=== PATIENT | female | born 1955 ===

== ENCOUNTER 2016-08-13 13:14 | Emergency (ER) | payer OTHER ==
[2016-08-13 13:14] VITALS: BMI 29.9
[2016-08-13 13:39] VITALS: RESP 16; O2SAT 99
--- NOTE | 2016-08-13 15:34 | RAD ---
PROCEDURE: Right knee dated 08/13/2016. . HISTORY: right knee pain COMPARISON: Comparison made with plain film radiographs of the right knee 03/25/2016. FINDINGS: BONES: No evidence of acute displaced fracture nor dislocation. Osseous structures appear intact. JOINTS: Minor medial joint space narrowing. Small marginal osteophyte formation arising from the lateral tibial plateau. The slight spurring of the tibial spines. There is also mild patellofemoral osteoarthritis with small posterior patellar anterior femoral osteophyte formation as well as anterior patella enthesophyte formation. . The joint spaces are preserved JOINT EFFUSION: No significant joint effusion. No acute OTHER FINDINGS: Mild vascular calcifications are present. IMPRESSION: No acute displaced fracture nor dislocation. Tricompartmental DJD as detailed above. Vascular calcifications are also noted
--- NOTE | 2016-08-13 15:40 | C.PDOC ---
History Of Present Illness 61 yr old female presents to the ER for evaluation of right knee and thigh pain that has been present ever since she fell in 2015. Patient states the pain has worsened in the last few days. She states she takes oxycodone for the pain at home. Patient denies any new trauma/injuries, back pain, fever, sensory changes, weakness. Time Seen by Provider: 08/13/16 14:02 Chief Complaint (Nursing): Lower Extremity Problem/Injury History Per: Patient History/Exam Limitations: no limitations Onset/Duration Of Symptoms: Persistent (Since 2015 ), Worse Since ( Last few days. ) Severity: Moderate Past Medical History Reviewed: Historical Data, Nursing Documentation, Vital Signs Vital Signs: Last Vital Signs Temp 97.6 F 08/13/16 16:28 Pulse 91 H 08/13/16 16:28 Resp 16 08/13/16 16:28 BP 162/72 H 08/13/16 16:28 Pulse Ox 99 08/21/16 14:04 - Medical History PMH: Anxiety, Arthritis, Asthma, CAD, Depression, Diabetes, HTN, Hypercholesterolemia Surgical History: Appendectomy (1998), [facility]/2014[facility] CORONAR ARTERIOGR-2 CATH (04/10/14) INSERTION OF ONE VASCULAR STENT (04/10/14) INSRT OF DRUG-ELUTING CORON ARTERY STENTS(S) (04/10/14) LEFT HEART CARDIAC CATH (04/10/14) LT HEART ANGIOCARDIOGRAM (03/03/14) OCCUPATIONAL THERAPY (08/15/14) PERCUTANEOUS TRANSLUMINAL CORONARY ANGIOPLASTY [PTCA] (04/10/14) PHYSICAL THERAPY NEC (08/15/14) PROCEDURE ON SINGLE VESSEL (04/10/14) Family History: States: CAD, Hypertension - Social History Hx Tobacco Use: No Hx Alcohol Use: No Hx Substance Use: No - Immunization History Hx Tetanus Toxoid Vaccination: Yes Hx Influenza Vaccination: Yes Hx Pneumococcal Vaccination: Yes Review Of Systems Except As Marked, All Systems Reviewed And Found Negative. Constitutional: Negative for: Fever, Chills Cardiovascular: Negative for: Chest Pain Respiratory: Negative for: Shortness of Breath Gastrointestinal: Negative for: Nausea, Vomiting, Abdominal Pain, Diarrhea Musculoskeletal: Positive for: Other ((+) Right knee pain and thigh pain. ). Negative for: Back Pain, Leg Pain Skin: Negative for: Rash Neurological: Negative for: Weakness, Numbness Physical Exam - Physical Exam Appears: Well, Non-toxic, No Acute Distress Skin: Normal Color, Warm, Dry, No Rash Head: Atraumatic, Normacephalic Oral Mucosa: Moist Cardiovascular: Rhythm Regular Respiratory: Normal Breath Sounds, No Rales, No Rhonchi, No Wheezing Gastrointestinal/Abdominal: Normal Exam, Bowel Sounds, Soft, No Tenderness Extremity: Normal ROM (at the hip and knee. ), Tenderness (Right Knee - Mild diffuse tenderness to palpation. ), No Calf Tenderness, Capillary Refill (< 2 sec all digits ), No Deformity, Other (No pain with pelvic rocking) Extremity: Bilateral: Atraumatic, Normal Color And Temperature, Normal ROM Pulses: Left Dorsalis Pedis: Normal, Right Dorsalis Pedis: Normal Neurological/Psych: Oriented x3, Normal Motor, Normal Sensation ED Course And Treatment O2 Sat by Pulse Oximetry: 99 (RA) Pulse Ox Interpretation: Normal - Other Rad X-Ray - Right Knee X-Ray: Viewed By Me, Read By Radiologist Interpretation: PROCEDURE: Right knee dated 08/13/2016. . HISTORY: right knee pain. COMPARISON: Comparison made with plain film radiographs of the right knee 03/25/2016. FINDINGS: BONES: No evidence of acute displaced fracture nor dislocation. Osseous structures appear intact. JOINTS: Minor medial joint space narrowing. Small marginal osteophyte formation arising from the lateral tibial plateau. The slight spurring of the tibial spines. There is also mild patellofemoral osteoarthritis with small posterior patellar anterior femoral osteophyte formation as well as anterior patella enthesophyte formation. . The joint spaces are preserved. JOINT EFFUSION: No significant joint effusion. No acute. OTHER FINDINGS: Mild vascular calcifications are present. IMPRESSION: No acute displaced fracture nor dislocation. Tricompartmental DJD as detailed above. Vascular calcifications are also noted Venous Duplex X-Ray: Viewed By Me, Read By Radiologist Interpretation: PROCEDURE: Right Lower Extremity Venous Duplex Exam. HISTORY: Right leg pain r/o dvt. PRIORS: None. TECHNIQUE: Right common femoral, femoral, popliteal and posterior tibial, peroneal and great saphenous veins were evaluated. Flow was assessed with color Doppler, compressibility, assessment of phasic flow and augmentation response. Report prepared by BYRON Mondragon. FINDINGS: RIGHT: 1. Common Femoral Vein: 1.1. Compressibility - Fully compressible: Thrombus - None: Flow - Phasic: Augmentation -Normal: Reflux - None. 2. Femoral Vein: 2.1. Compressibility - Fully compressible: Thrombus - None: Flow - Phasic: Augmentation -Normal: Reflux - None. 3. Popliteal Vein: 3.1. Compressibility - Fully compressible: Thrombus - None: Flow - Phasic: Augmentation -Normal: Reflux - None. 4. Posterior Tibial Vein: 4.1. Compressibility - Fully compressible: Thrombus - None: Flow - Phasic: Augmentation -Normal: Reflux - None. 5. Peroneal Vein: 5.1. Compressibility - Fully compressible: Thrombus - None: Flow - Phasic: Augmentation -Normal: Reflux - None. 6. Great Saphenous Vein: 6.1. Compressibility - Fully compressible: Thrombus -None: Flow - Phasic: Augmentation - Normal: Reflux - None. OTHER FINDINGS: IMPRESSION: No evidence of deep or superficial vein thrombosis of the right lower extremity with excellent venous flow. Normal valve function noted of the right side. Normal venous flow noted in the left common femoral vein. Progress Note: Xray of right knee and venous doppler ordered and reviewed. Patient given 1 dose PO Percocet. Reevaluation Time: 16:10 Reassessment Condition: Improved (On reassessment, patient is resting comfortably and states her pain has improved. Venous doppler (-) for DVT, and Xray of knee shows arthritic changes without acute fracture/dislocation. Patient instructed to follow up with orthopedics within 1 week. She has pain medication at home to take, and understands she should return to ED if symptoms worsen.) Disposition Counseled Patient/Family Regarding: Studies Performed, Diagnosis, Need For Followup, Rx Given - Disposition Referrals: Lamonte Kamara MD [Non-Staff] - Kosta De La Cruz MD [Staff Provider] - [facility] [Outside] Disposition: HOME/ ROUTINE Disposition Time: 16:10 Condition: STABLE Additional Instructions: FOLLOW UP WITH ORTHOPEDICS WITHIN 1 WEEK USE YOUR PAIN MEDICATION NEEDED FOLLOW UP WITH DR KAMARA IN 1-2 DAYS RETURN TO ER IF SYMTOMS WORSEN Instructions: Knee Pain (ED) Forms: General Discharge Instructions Print Language: TURKMEN - POA Present On Arrival: None - Clinical Impression Clinical Impression: Knee pain, Right thigh pain - Scribe Statement The provider has reviewed the documentation as recorded by the Keithibe Gala Patel Provider Attestation: All medical record entries made by the Padmini were at my direction and personally dictated by me. I have reviewed the chart and agree that the record accurately reflects my personal performance of the history, physical exam, medical decision making, and the department course for this patient. I have also personally directed, reviewed, and agree with the discharge instructions and disposition.
[2016-08-13] MEDS ORDERED: Oxycodone/Acetaminophen 5/325 mg Tab PO STA (15:44)
[2016-08-13] MEDS ORDERED: Oxycodone/Acetaminophen 5/325 mg Tab ONE (15:49)
--- NOTE | 2016-08-13 15:58 | VASCLAB ---
PROCEDURE: Right Lower Extremity Venous Duplex Exam. HISTORY: Right leg pain r/o dvt PRIORS: None. TECHNIQUE: Right common femoral, femoral, popliteal and posterior tibial, peroneal and great saphenous veins were evaluated. Flow was assessed with color Doppler, compressibility, assessment of phasic flow and augmentation response. Report prepared by BYRON Mondragon FINDINGS: RIGHT: 1. Common Femoral Vein: 1.1. Compressibility - Fully compressible: Thrombus - None: Flow - Phasic: Augmentation -Normal: Reflux - None. 2. Femoral Vein: 2.1. Compressibility - Fully compressible: Thrombus - None: Flow - Phasic: Augmentation -Normal: Reflux - None. 3. Popliteal Vein: 3.1. Compressibility - Fully compressible: Thrombus - None: Flow - Phasic: Augmentation -Normal: Reflux - None. 4. Posterior Tibial Vein: 4.1. Compressibility - Fully compressible: Thrombus - None: Flow - Phasic: Augmentation -Normal: Reflux - None. 5. Peroneal Vein: 5.1. Compressibility - Fully compressible: Thrombus - None: Flow - Phasic: Augmentation -Normal: Reflux - None. 6. Great Saphenous Vein: 6.1. Compressibility - Fully compressible: Thrombus -None: Flow - Phasic: Augmentation - Normal: Reflux - None. OTHER FINDINGS: IMPRESSION: No evidence of deep or superficial vein thrombosis of the right lower extremity with excellent venous flow. Normal valve function noted of the right side. Normal venous flow noted in the left common femoral vein.
[2016-08-13 16:29] VITALS: BP 162/72; PULSE 91; TEMP 97.6
== END 2016-08-13 16:29 | disposition home or self-care (01) ==
LOC: C.ER 13:14
DX: M25.561 Pain in right knee (principal); M79.651 Pain in right thigh

== ENCOUNTER 2017-04-05 19:24 | Observation (INO) | payer MEDICARE, OTHER ==
[2017-04-05 19:24] VITALS: BMI 27.4
--- NOTE | 2017-04-05 22:28 | C.PDOC ---
History Of Present Illness 62 year old female with a Hx of HTN, diabetes, and CAD, presents to the ER with a complaint of chest pain and elevated blood pressure for the past week, associated with subjective dyspnea. Denies fever or other complaints. Time Seen by Provider: 04/05/17 21:50 Chief Complaint (Nursing): High Blood Pressure History Per: Patient History/Exam Limitations: no limitations Onset/Duration Of Symptoms: Days Current Symptoms Are (Timing): Still Present Associated Symptoms: Chest Pain, Dyspnea (Subjective). denies: Dizziness, Blurred Vision, Focal Weakness, Headache Quality Of Symptoms: Asymptomatic Exacerbating Factor(s): Pos: None Recent travel outside of the [place]: No Past Medical History Reviewed: Historical Data, Nursing Documentation, Vital Signs Vital Signs: Last Vital Signs Temp 98.4 F 04/05/17 20:18 Pulse 85 04/05/17 20:18 Resp 20 04/05/17 20:18 BP 148/84 04/05/17 20:18 Pulse Ox 98 04/05/17 22:29 - Medical History PMH: Anxiety, Arthritis, Asthma, CAD, Depression, Diabetes, HTN, Hypercholesterolemia Surgical History: Appendectomy (1998), Coronary Stent (x2 04/10/2014) Denies: Pacemaker - [facility] Procedures CORONAR ARTERIOGR-2 CATH (04/10/14) INSERTION OF ONE VASCULAR STENT (04/10/14) INSRT OF DRUG-ELUTING CORON ARTERY STENTS(S) (04/10/14) LEFT HEART CARDIAC CATH (04/10/14) LT HEART ANGIOCARDIOGRAM (03/03/14) OCCUPATIONAL THERAPY (08/15/14) PERCUTANEOUS TRANSLUMINAL CORONARY ANGIOPLASTY [PTCA] (04/10/14) PHYSICAL THERAPY NEC (08/15/14) PROCEDURE ON SINGLE VESSEL (04/10/14) Family History: States: CAD, Hypertension - Social History Hx Tobacco Use: No Hx Alcohol Use: No Hx Substance Use: No - Immunization History Hx Tetanus Toxoid Vaccination: Yes Hx Influenza Vaccination: No Hx Pneumococcal Vaccination: No Review Of Systems Constitutional: Negative for: Fever, Chills Cardiovascular: Positive for: Chest Pain Respiratory: Positive for: Other (Subjective dyspnea) Gastrointestinal: Negative for: Nausea, Vomiting Physical Exam - Physical Exam Appears: Non-toxic, No Acute Distress Skin: Normal Color, Warm, Dry Head: Atraumatic, Normacephalic Eye(s): bilateral: Normal Inspection Oral Mucosa: Moist Neck: Normal, Supple Chest: Symmetrical, No Tenderness Cardiovascular: Rhythm Regular Respiratory: Normal Breath Sounds, No Rales, No Rhonchi, No Wheezing Gastrointestinal/Abdominal: Soft, No Tenderness Extremity: Normal ROM (x4) Neurological/Psych: Oriented x3, Normal Speech, Other (No focal deficits) ED Course And Treatment ECG: Interpreted By Me, Viewed By Me ECG Rhythm: Sinus Rhythm ECG Interpretation: No Changes From Prior Interpretation Of ECG: t wave changes anterior laterally Rate From EC O2 Sat by Pulse Oximetry: 98 (Room air) Pulse Ox Interpretation: Normal Medical Decision Making Medical Decision Making: EKG, blood work, and CXR ordered. Disposition - Disposition Forms: [facility] (Slovak) - Scribe Statement The provider has reviewed the documentation as recorded by the Scribreynaldo Morfin All medical record entries made by the Scribe were at my direction and personally dictated by me. I have reviewed the chart and agree that the record accurately reflects my personal performance of the history, physical exam, medical decision making, and the department course for this patient. I have also personally directed, reviewed, and agree with the discharge instructions and disposition.
[2017-04-05 22:46] LABS: BASO % 0.6 % (0.0-2.0); EOS # 0.8 K/uL (0.0-0.7); EOS % 9.3 % (0.0-4.0); HEMATOCRIT 31.6 % (34.0-47.0); LYMPH % 12.7 % (20.0-40.0); MEAN CORPUSCULAR HEMOGLOBIN 28.8 pg (27.0-31.0); MEAN CORPUSCULAR HGB CONC 33.5 g/dL (33.0-37.0); MEAN PLATELET VOLUME 6.4 fL (7.2-11.7); MONO # 0.5 K/uL (0.0-0.8); MONO % 6.2 % (0.0-10.0); RED CELL DISTRIBUTION WIDTH 13.2 % (11.5-14.5); WHITE BLOOD COUNT 8.2 K/uL (4.8-10.8)
[2017-04-05 23:12] LABS: ALKALINE PHOSPHATASE 83 U/L (38-126); ALT/SGPT 36 U/L (9-52); AST/SGOT 20 U/L (14-36); BILIRUBIN,TOTAL 0.8 mg/dL (0.2-1.3); BLOOD UREA NITROGEN 20 mg/dL (7-17); CALCIUM 8.6 mg/dl (8.6-10.4); CARBON DIOXIDE 23 mmol/L (22-30); CHLORIDE 105 mmol/L (98-107); GFR AFRICAN-AMERICAN 55; GLUCOSE,RANDOM 131 mg/dL (65-105); POTASSIUM 3.9 mmol/L (3.6-5.2); SODIUM 139 mmol/L (132-148); TOTAL PROTEIN 7.7 g/dL (6.3-8.3)
[2017-04-06] MEDS ORDERED: POLYETHYLENE GLYCOL 3350 17 GM/Dose PACKET PO SCH (01:45)
[2017-04-06 03:12] VITALS: TEMP 98.3
--- NOTE | 2017-04-06 03:44 | CP.PCM.HP ---
<DavidLisa L. - Last Filed: 04/06/17 03:41> History of Present Illness - History of Present Illness History of Present Illness: CC: Chest Pain HPI: 62 year old female presented to ED with chest pain and elevated blood pressure that has been present for the past week on and off. This morning, patient awoke with chest pain and was unable to move due to the pain. Patient describes the pain as heavy. The pain radiates to her left shoulder, upper back and neck. Her blood pressure this past week has been as high as 190/80. Nothing makes the pain feel better. Patient also complains of fatigue, and dyspnea. Patient denies fever, chills, nausea, vomiting, constipation, diarrhea. PMH: CAD, Diabetes, HTN, HLD, asthma. anxiety, depression PSH: Appendectomy (1998), Coronary Stent x2 (2013) Family History: CAD, HTN Medications: Metformin 500 mg BID, Norvasc 10 mg daily, ASA 81 mg daily, Ativan 1 mg daily PRN, Oxycodone 15 mg daily PRN, Plavix 75 mg daily, Colac 100 mg TID , Pepcid 20 mg BID, Miralax 17 gm once, Crestor 10 mg HS, Lopressor 12.5 mg BID Allergies: NKDA Social: Denies tobacco, drug, alcohol use Present on Admission - Present on Admission Any Indicators Present on Admission: No History of DVT/PE: No History of Uncontrolled Diabetes: No Urinary Catheter: No Decubitus Ulcer Present: No Review of Systems - Constitutional Constitutional: Fatigue Additional comments: decreased appetite - Cardiovascular Cardiovascular: Chest Pain, Dyspnea. absent: Leg Edema, Palpitations - Respiratory Respiratory: Dyspnea. absent: Cough, Wheezing, Stridor - Gastrointestinal Gastrointestinal: absent: Abdominal Pain, Constipation, Diarrhea, Nausea, Vomiting - Musculoskeletal Musculoskeletal: absent: Numbness, Tingling - Integumentary Integumentary: absent: Rash - Endocrine Endocrine: Fatigue Past Patient History - Infectious Disease Hx of Infectious Diseases: None - Past Medical History & Family History Past Medical History?: Yes - Past Social History Smoking Status: Never Smoked - CARDIAC Hx Hypercholesterolemia: Yes Hx Hypertension: Yes Hx Pacemaker: No - PULMONARY Hx Asthma: Yes - NEUROLOGICAL HX Cerebrovascular Accident: Yes (may 2014; left sided weakness) - HEENT Hx HEENT Problems: Yes Other/Comment: EYES W/ PRESSURE - RENAL Hx Chronic Kidney Disease: No - ENDOCRINE/METABOLIC Hx Endocrine Disorders: Yes Hx Diabetes Mellitus Type 2: Yes - HEMATOLOGICAL/ONCOLOGICAL Hx Human Immunodeficiency Virus (HIV): No - INTEGUMENTARY Hx Dermatological Problems: No - MUSCULOSKELETAL/RHEUMATOLOGICAL Hx Arthritis: Yes - GASTROINTESTINAL Hx Gastrointestinal Disorders: No - GENITOURINARY/GYNECOLOGICAL Hx Genitourinary Disorders: No - PSYCHIATRIC Hx Anxiety: Yes Hx Depression: Yes Hx Substance Use: No - SURGICAL HISTORY Hx Appendectomy: Yes (1998) Hx Coronary Stent: Yes (x2 04/10/2014) - ANESTHESIA Hx Anesthesia: Yes Hx Anesthesia Reactions: No Hx Malignant Hyperthermia: No Meds Allergies/Adverse Reactions: Allergies Allergy/AdvReac Type Severity Reaction Status Date / Time No Known Allergies Allergy Verified 04/05/17 20:23 Physical Exam - Constitutional Appears: Non-toxic, No Acute Distress - Head Exam Head Exam: ATRAUMATIC, NORMAL INSPECTION, NORMOCEPHALIC Additional comments: positive spurling, pain in neck and shoulder with head movement - Eye Exam Eye Exam: EOMI, Normal appearance - ENT Exam ENT Exam: Mucous Membranes Moist - Respiratory Exam Respiratory Exam: Clear to Auscultation Bilateral, NORMAL BREATHING PATTERN. absent: Rales, Rhonchi, Wheezes, Respiratory Distress, Stridor - Cardiovascular Exam Cardiovascular Exam: +S1, +S2 - GI/Abdominal Exam GI & Abdominal Exam: Normal Bowel Sounds, Soft. absent: Tenderness - Extremities Exam Extremities exam: Positive for: normal inspection. Negative for: pedal edema - Neurological Exam Neurological exam: Alert, Oriented x3 - Psychiatric Exam Psychiatric exam: Anxious, Normal Affect - Skin Skin Exam: Intact, Normal Color, Warm Results - Vital Signs Recent Vital Signs: Last Vital Signs Temp 98.3 F 04/06/17 03:11 Pulse 89 04/06/17 03:11 Resp 20 04/06/17 03:11 BP 148/77 04/06/17 03:11 Pulse Ox 97 04/06/17 03:11 - Labs Result Diagrams: 04/05/17 22:44 04/05/17 22:44 Labs: Laboratory Results - last 24 hr 04/05/17 04/05/17 04/05/17 22:44 22:44 22:44 WBC 8.2 RBC 3.67 L Hgb 10.6 L Hct 31.6 L MCV 86.0 MCH 28.8 MCHC 33.5 RDW 13.2 Plt Count 255 MPV 6.4 L Neut % (Auto) 71.2 Lymph % (Auto) 12.7 L [place] % (Auto) 6.2 Eos % (Auto) 9.3 H Baso % (Auto) 0.6 Neut # 5.9 Lymph # 1.0 [place] # 0.5 Eos # 0.8 H Baso # 0.0 PT 10.9 INR 1.0 APTT 35 H Sodium 139 Potassium 3.9 Chloride 105 Carbon Dioxide 23 Anion Gap 15 BUN 20 H Creatinine 1.2 Est GFR ( Amer) 55 Est GFR (Non-Af Amer) 46 Random Glucose 131 H Calcium 8.6 Total Bilirubin 0.8 AST 20 ALT 36 Alkaline Phosphatase 83 Troponin I < 0.0120 NT-Pro-B Natriuret Pep 493 Total Protein 7.7 Albumin 3.9 Globulin 3.8 Albumin/Globulin Ratio 1.0 Assessment & Plan - Assessment and Plan (Free Text) Assessment: Chest pain 2/2 cervical radiculopathy vs ACS ASA 325mg po in ED Flexeril 10mg po TID Toradol 30mg IVP stat Apply cervical collar f/u Troponin First troponin negative CAD Plavix 75mg po daily Crestor 10mg po hs ASA 81mg po daily HTN Metoprolol 12.5mg po BID DM Metformin 500mg po BID f/u HgA1C Accuchecks ACHS Chronic Constipation Miralax Prophylaxis DVT: SCDs, Heparin 5000 u sc q8h GI: Pepcid 20 mg po BID <Korey Hall P - Last Filed: 04/06/17 06:54> Results - Vital Signs Recent Vital Signs: Last Vital Signs Temp 98.3 F 04/06/17 03:11 Pulse 89 04/06/17 03:11 Resp 20 04/06/17 03:11 BP 148/77 04/06/17 03:11 Pulse Ox 97 04/06/17 03:11 - Labs Result Diagrams: 04/05/17 22:44 04/05/17 22:44 Labs: Laboratory Results - last 24 hr 04/05/17 04/05/17 04/05/17 22:44 22:44 22:44 WBC 8.2 RBC 3.67 L Hgb 10.6 L Hct 31.6 L MCV 86.0 MCH 28.8 MCHC 33.5 RDW 13.2 Plt Count 255 MPV 6.4 L Neut % (Auto) 71.2 Lymph % (Auto) 12.7 L [place] % (Auto) 6.2 Eos % (Auto) 9.3 H Baso % (Auto) 0.6 Neut # 5.9 Lymph # 1.0 [place] # 0.5 Eos # 0.8 H Baso # 0.0 PT 10.9 INR 1.0 APTT 35 H Sodium 139 Potassium 3.9 Chloride 105 Carbon Dioxide 23 Anion Gap 15 BUN 20 H Creatinine 1.2 Est GFR ( Amer) 55 Est GFR (Non-Af Amer) 46 Random Glucose 131 H Hemoglobin A1c Calcium 8.6 Total Bilirubin 0.8 AST 20 ALT 36 Alkaline Phosphatase 83 Troponin I < 0.0120 NT-Pro-B Natriuret Pep 493 Total Protein 7.7 Albumin 3.9 Globulin 3.8 Albumin/Globulin Ratio 1.0 04/06/17 04/06/17 04:24 04:24 WBC RBC Hgb Hct MCV MCH MCHC RDW Plt Count MPV Neut % (Auto) Lymph % (Auto) [place] % (Auto) Eos % (Auto) Baso % (Auto) Neut # Lymph # [place] # Eos # Baso # PT INR APTT Sodium Potassium Chloride Carbon Dioxide Anion Gap BUN Creatinine Est GFR ( Amer) Est GFR (Non-Af Amer) Random Glucose Hemoglobin A1c 5.8 Calcium Total Bilirubin AST ALT Alkaline Phosphatase Troponin I < 0.0120 NT-Pro-B Natriuret Pep Total Protein Albumin Globulin Albumin/Globulin Ratio Attending/Attestation - Attestation I have personally seen and examined this patient.: Yes I have fully participated in the care of the patient.: Yes I have reviewed all pertinent clinical information: Yes Notes (Text): Assessment 62 F with h/o CAD stents with left sided cp started yesterday morning when woke up from sleep, not exertional on exam + spruling's test on left side, left neck trap, pertoral area tender, no sensory or motor deficit Intermittent elevated bp likely from stress and pain H/o NIDDM Plan Cervical collar, toradol, flexeril, ativan Serial enzymes home meds See orders for details.
[2017-04-06 06:52] VITALS: O2SAT 95
--- NOTE | 2017-04-06 09:22 | RAD ---
HISTORY: chest pain COMPARISON: 08/30/2016 TECHNIQUE: Chest PA and lateral FINDINGS: LUNGS: No consolidation. Mild reticular interstitial prominence, more prominent at lung bases. PLEURA: Small bilateral pleural effusion. No pneumothorax. CARDIOVASCULAR: Normal. OSSEOUS STRUCTURES: No significant abnormalities. VISUALIZED UPPER ABDOMEN: Normal. OTHER FINDINGS: None. IMPRESSION: Mild reticular interstitial prominence, nonspecific. Small bilateral pleural effusion. Rule out interstitial pulmonary edema.
--- NOTE | 2017-04-06 09:31 | CP.PCM.PN ---
Objective - Vital Signs/Intake and Output Vital Signs (last 24 hours): Temp Pulse Resp BP Pulse Ox 98.3 F 86 18 129/74 95 04/06/17 03:11 04/06/17 06:51 04/06/17 06:51 04/06/17 06:51 04/06/17 06:51 - Medications Medications: Current Medications Amlodipine Besylate (Norvasc) 10 mg PO DAILY [facility] Aspirin (Aspirin Chewable) 81 mg PO DAILY [facility] Clopidogrel Bisulfate (Plavix) 75 mg PO DAILY [facility] Cyclobenzaprine HCl (Flexeril) 10 mg PO TID [facility] Docusate Sodium (Colace) 100 mg PO TID [facility] Famotidine (Pepcid) 20 mg PO BID [facility] Heparin Sodium (Porcine) (Heparin) 5,000 units SC Q8 [facility] Last Admin: 04/06/17 07:35 Dose: 5,000 units Losartan Potassium (Cozaar) 50 mg PO DAILY [facility] Metformin HCl (Glucophage) 500 mg PO BIDCC [facility] Metoprolol Tartrate (Lopressor) 12.5 mg PO BID [facility] Polyethylene Glycol (Miralax) 17 gm PO ONCE [facility] Rosuvastatin Calcium (Crestor) 10 mg PO HS [facility] - Labs Labs: 04/05/17 22:44 04/05/17 22:44 PT 10.9 SECONDS (9.7-12.2) 04/05/17 22:44 INR 1.0 04/05/17 22:44 APTT 35 SECONDS (21-34) H 04/05/17 22:44
--- NOTE | 2017-04-06 14:53 | PCM.PSYCH ---
Initial Psychiatric Evaluation - Initial Psychiatric Evaluation Type of Admission: Voluntary Legal Status: Capacity Chief Complaint (in patient's own words): I'm feeling depressed and anxious" History of Present Illness and Precipitating Events: Pt is 62 y/o female who is with 2 adult children that are 30 and 39 y/ o. She lives with her wheel-chair bound . 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 She is complaining of depression and anxiety. She states that she has been feeling this way for a "long time" and she feels like the care of her is the main stressor. She is prescribed Ativan 1mg, by her PCP, that she says helps relief her anxiety symptoms. She has a hsitory of panic attacks that is relieved by the Ativan. She was prescribed oxycodone in the past but is unable to afford it anymore. As a result , takes her 's oxycodone as needed for pain in her legs. Pt denies alcohol, tobacco, marijuana, benzo use. Pt states that she has been feeling very fatigued and she does not sleep well. She denies Suicidal Ideations. She reports deccreased appetite, difficulty concentrating, and decreased interest. Past Medical HX: Asthma, Stroke 2015, Cardiac Stent x2 2013 Past Psychiatric HX: Denies Family Psychiatric HX: Denies Current Medications: Active Medications Generic Name Dose Route Start Last Admin Trade Name Freq PRN Reason Stop Dose Admin Amlodipine Besylate 10 mg 04/06/17 10:00 04/06/17 09:39 Norvasc PO 10 mg DAILY TORRI Administration Aspirin 81 mg 04/06/17 10:00 04/06/17 09:32 Aspirin Chewable PO 81 mg DAILY TORRI Administration Clopidogrel Bisulfate 75 mg 04/06/17 10:00 04/06/17 09:33 Plavix PO 75 mg DAILY TORRI Administration Cyclobenzaprine HCl 10 mg 04/06/17 10:00 04/06/17 10:18 Flexeril PO 10 mg TID TORRI Administration Docusate Sodium 100 mg 04/06/17 10:00 04/06/17 09:33 Colace PO 100 mg TID TORRI Administration Escitalopram Oxalate 5 mg 04/07/17 10:00 Lexapro PO DAILY TORRI Famotidine 20 mg 04/06/17 10:00 04/06/17 09:33 Pepcid PO 20 mg BID TORRI Administration Heparin Sodium (Porcine) 5,000 units 04/06/17 06:00 04/06/17 07:35 Heparin SC 5,000 units Q8 TORRI Administration Lorazepam 0.5 mg 04/06/17 15:00 Ativan PO Q6H PRN Anxiety Losartan Potassium 50 mg 04/06/17 10:00 04/06/17 09:34 Cozaar PO 50 mg DAILY TORRI Administration Metformin HCl 500 mg 04/06/17 08:00 04/06/17 09:33 Glucophage PO 500 mg BIDCC TORRI Administration Metoprolol Tartrate 12.5 mg 04/06/17 10:00 04/06/17 09:33 Lopressor PO 12.5 mg BID TORIR Administration Polyethylene Glycol 17 gm 04/06/17 01:45 Miralax PO ONCE TORRI Rosuvastatin Calcium 10 mg 04/06/17 22:00 Crestor PO HS TORRI Trazodone HCl 50 mg 04/06/17 22:00 Desyrel PO HS TORRI Past Psychiatric History - Past Psychiatric History Pertinent Medical Hx (Current Medical&Sleep Prob, Allergies): Allergies Allergy/AdvReac Type Severity Reaction Status Date / Time No Known Allergies Allergy Verified 04/05/17 20:23 amLODIPine [Norvasc] 10 mg PO DAILY 03/04/16 metFORMIN [glucOPHAGE] 500 mg PO BID 03/04/16 Losartan [Cozaar] 50 mg PO DAILY #0 tab 03/29/16 Aspirin [Aspirin Chewable] 81 mg PO DAILY 08/30/16 LORazepam [Ativan] 1 mg PO DAILY PRN 08/30/16 oxyCODONE [oxyCODONE Immediate Release Tab] 15 mg PO DAILY PRN 08/30/16 Clopidogrel [Plavix] 75 mg PO DAILY #0 tab 09/02/16 Docusate [Colace] 100 mg PO TID cap 09/02/16 Famotidine [Pepcid] 20 mg PO BID tab 09/02/16 Metoprolol Tartrate [Lopressor] 12.5 mg PO BID #60 tab 09/02/16 Polyethylene Glycol 3350 [Miralax] 17 gm PO ONCE packet 09/02/16 Rosuvastatin Calcium [Crestor] 10 mg PO HS tab 09/02/16 Review of Systems - Neurological Neurological: UNREMARKABLE - Psychiatric Psychiatric: Abnormal Sleep Pattern, Anhedonia, Anxiety, Change in Appetite, Depression, Difficulty Concentrating, Hopelessness, Panic Attacks Mental Status Examination - Personal Presentation Personal Presentation: Looks stated age - Affect Affect: Depressed - Motor Activity Motor Activity: Calm - Reliability in Providing Information Reliability in Providing Information: Good - Speech Speech: Organized - Mood Mood: Depressed - Formal Thought Process Formal Thought Process: No Impairment - Cognitive Functions Orientation: Person, Place, Situation, Time Attention/Concentration: Attentive Judgement: Intact, as evidence by: Insight regarding need for hospitalization Memory: Recent intact, as evidence by: Ability to recall events of the day, Remote intact, as evidenced by: Ability to recall historical events - Risk Risk: Diminished functioning DSM 5 DX - DSM 5 DSM 5 Diagnosis: TUYET 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
--- NOTE | 2017-04-06 15:25 | CP.PCM.DIS ---
<Lisa Mac - Last Filed: 04/06/17 18:22> Provider - Provider Date of Admission: 04/05/17 23:46 Attending physician: Ben Grady DO Time Spent in preparation of Discharge (in minutes): 40 Hospital Course - Lab Results Lab Results: Most Recent Lab Values WBC 8.2 K/uL (4.8-10.8) 04/05/17 22:44 RBC 3.67 Mil/uL (3.80-5.20) L 04/05/17 22:44 Hgb 10.6 g/dL (11.0-16.0) L 04/05/17 22:44 Hct 31.6 % (34.0-47.0) L 04/05/17 22:44 MCV 86.0 fL (81.0-99.0) 04/05/17 22:44 MCH 28.8 pg (27.0-31.0) 04/05/17 22:44 MCHC 33.5 g/dL (33.0-37.0) 04/05/17 22:44 RDW 13.2 % (11.5-14.5) 04/05/17 22:44 Plt Count 255 K/uL (130-400) 04/05/17 22:44 MPV 6.4 fL (7.2-11.7) L 04/05/17 22:44 Neut % (Auto) 71.2 % (50.0-75.0) 04/05/17 22:44 Lymph % (Auto) 12.7 % (20.0-40.0) L 04/05/17 22:44 [place] % (Auto) 6.2 % (0.0-10.0) 04/05/17 22:44 Eos % (Auto) 9.3 % (0.0-4.0) H 04/05/17 22:44 Baso % (Auto) 0.6 % (0.0-2.0) 04/05/17 22:44 Neut # 5.9 K/uL (1.8-7.0) 04/05/17 22:44 Lymph # 1.0 K/uL (1.0-4.3) 04/05/17 22:44 [place] # 0.5 K/uL (0.0-0.8) 04/05/17 22:44 Eos # 0.8 K/uL (0.0-0.7) H 04/05/17 22:44 Baso # 0.0 K/uL (0.0-0.2) 04/05/17 22:44 PT 10.9 SECONDS (9.7-12.2) 04/05/17 22:44 INR 1.0 04/05/17 22:44 APTT 35 SECONDS (21-34) H 04/05/17 22:44 Sodium 139 mmol/L (132-148) 04/05/17 22:44 Potassium 3.9 mmol/L (3.6-5.2) 04/05/17 22:44 Chloride 105 mmol/L (98-107) 04/05/17 22:44 Carbon Dioxide 23 mmol/L (22-30) 04/05/17 22:44 Anion Gap 15 (10-20) 04/05/17 22:44 BUN 20 mg/dL (7-17) H 04/05/17 22:44 Creatinine 1.2 mg/dL (0.7-1.2) 04/05/17 22:44 Est GFR ( Amer) 55 04/05/17 22:44 Est GFR (Non-Af Amer) 46 04/05/17 22:44 POC Glucose (mg/dL) 95 mg/dL (65-110) 04/06/17 12:11 Random Glucose 131 mg/dL (65-105) H 04/05/17 22:44 Hemoglobin A1c 5.8 % (4.2-6.5) 04/06/17 04:24 Calcium 8.6 mg/dl (8.6-10.4) 04/05/17 22:44 Total Bilirubin 0.8 mg/dL (0.2-1.3) 04/05/17 22:44 AST 20 U/L (14-36) 04/05/17 22:44 ALT 36 U/L (9-52) 04/05/17 22:44 Alkaline Phosphatase 83 U/L (38-126) 04/05/17 22:44 Total Creatine Kinase 90 U/L (30-135) 04/06/17 10:17 CK-MB (Mass) 1.48 ng/mL (0.0-3.38) 04/06/17 10:17 Troponin I < 0.0120 ng/mL (0.00-0.120) 04/06/17 10:17 NT-Pro-B Natriuret Pep 493 pg/mL (0-900) 04/05/17 22:44 Total Protein 7.7 g/dL (6.3-8.3) 04/05/17 22:44 Albumin 3.9 g/dL (3.5-5.0) 04/05/17 22:44 Globulin 3.8 gm/dL (2.2-3.9) 04/05/17 22:44 Albumin/Globulin Ratio 1.0 (1.0-2.1) 04/05/17 22:44 - Hospital Course Hospital Course: HPI: 62 year old female presented to ED with chest pain and elevated blood pressure that has been present for the past week on and off. This morning, patient awoke with chest pain and was unable to move due to the pain. Patient describes the pain as heavy. The pain radiates to her left shoulder, upper back and neck. Her blood pressure this past week has been as high as 190/80. Nothing makes the pain feel better. Patient also complains of fatigue, and dyspnea. Patient denies fever, chills, nausea, vomiting, constipation, diarrhea. PMH: CAD, Diabetes, HTN, HLD, asthma. anxiety, depression PSH: Appendectomy (1998), Coronary Stent x2 (2013) Family History: CAD, HTN Medications: Metformin 500 mg BID, Norvasc 10 mg daily, ASA 81 mg daily, Ativan 1 mg daily PRN, Oxycodone 15 mg daily PRN, Plavix 75 mg daily, [place] 100 mg TID , Pepcid 20 mg BID, Miralax 17 gm once, Crestor 10 mg HS, Lopressor 12.5 mg BID Allergies: NKDA Social: Denies tobacco, drug, alcohol use Hospital Course: Upon admission the following imaging and diagnostic exam were conducted; Chest XR: Mild reticular interstitial prominence. Small bilateral pleural effusion. EKG: Normal sinus rhythm. Prolong QT. Troponins were negative x3 Today, 04/06/17, patient no longer complains of chest pain but continue to have neck pain, especially with movement. Patient has also reported feeling depressed and anxious. Psychiatry, Dr. Mann was consulted today and recommended continuation of the patients mood stabilizing medications. Patient will follow up in the clinic for her neck pain and her depression. This is a brief summary of the patients hospital course. Please review EMR for full record. Patient stable for discharge home per Dr. Grady. Please continue home medications. Please start new medications: Cyclobenzaprine 10mg twice a day for neck pain Escitalopram 10mg daily: for the next 2 days cut the pill in half and take only 5mg then proceed to taking the full 10mg daily. Trazodone 50mg at night as needed for sleep. Please follow up at [facility] in the next 7-10 days. Call [phone] to make an appointment. Through the clinic you will need to follow up with the following specialists: Psychiatry Discharge Exam - Head Exam Head Exam: ATRAUMATIC, NORMAL INSPECTION, NORMOCEPHALIC - Eye Exam Eye Exam: EOMI, Normal appearance - ENT Exam ENT Exam: Mucous Membranes Moist - Respiratory Exam Respiratory Exam: Clear to PA & Lateral, NORMAL BREATHING PATTERN - Cardiovascular Exam Cardiovascular Exam: REGULAR RHYTHM, RRR, +S1, +S2 - GI/Abdominal Exam GI & Abdominal Exam: Normal Bowel Sounds, Soft. absent: Tenderness - Extremities Exam Extremities exam: normal inspection - Neurological Exam Neurological exam: Alert, Oriented x3 - Psychiatric Exam Psychiatric exam: Normal Affect, Normal Mood - Skin Skin Exam: Normal Color, Warm Discharge Plan - Discharge Medications Prescriptions: Cyclobenzaprine [Flexeril] 10 mg PO BID #60 tab Escitalopram [Lexapro] 10 mg PO DAILY #30 tab traZODone [Desyrel] 50 mg PO HS #30 tab - Follow Up Plan Condition: GOOD Disposition: HOME/ ROUTINE Instructions: Chest Pain (DC), Hypertension (DC), Anxiety (DC) <Ben Grady - Last Filed: 04/06/17 18:31> Provider - Provider Date of Admission: 04/05/17 23:46 Attending physician: Ben Grady DO Hospital Course - Lab Results Lab Results: Most Recent Lab Values WBC 8.2 K/uL (4.8-10.8) 04/05/17 22:44 RBC 3.67 Mil/uL (3.80-5.20) L 04/05/17 22:44 Hgb 10.6 g/dL (11.0-16.0) L 04/05/17 22:44 Hct 31.6 % (34.0-47.0) L 04/05/17 22:44 MCV 86.0 fL (81.0-99.0) 04/05/17 22:44 MCH 28.8 pg (27.0-31.0) 04/05/17 22:44 MCHC 33.5 g/dL (33.0-37.0) 04/05/17 22:44 RDW 13.2 % (11.5-14.5) 04/05/17 22:44 Plt Count 255 K/uL (130-400) 04/05/17 22:44 MPV 6.4 fL (7.2-11.7) L 04/05/17 22:44 Neut % (Auto) 71.2 % (50.0-75.0) 04/05/17 22:44 Lymph % (Auto) 12.7 % (20.0-40.0) L 04/05/17 22:44 [place] % (Auto) 6.2 % (0.0-10.0) 04/05/17 22:44 Eos % (Auto) 9.3 % (0.0-4.0) H 04/05/17 22:44 Baso % (Auto) 0.6 % (0.0-2.0) 04/05/17 22:44 Neut # 5.9 K/uL (1.8-7.0) 04/05/17 22:44 Lymph # 1.0 K/uL (1.0-4.3) 04/05/17 22:44 [place] # 0.5 K/uL (0.0-0.8) 04/05/17 22:44 Eos # 0.8 K/uL (0.0-0.7) H 04/05/17 22:44 Baso # 0.0 K/uL (0.0-0.2) 04/05/17 22:44 PT 10.9 SECONDS (9.7-12.2) 04/05/17 22:44 INR 1.0 04/05/17 22:44 APTT 35 SECONDS (21-34) H 04/05/17 22:44 Sodium 139 mmol/L (132-148) 04/05/17 22:44 Potassium 3.9 mmol/L (3.6-5.2) 04/05/17 22:44 Chloride 105 mmol/L (98-107) 04/05/17 22:44 Carbon Dioxide 23 mmol/L (22-30) 04/05/17 22:44 Anion Gap 15 (10-20) 04/05/17 22:44 BUN 20 mg/dL (7-17) H 04/05/17 22:44 Creatinine 1.2 mg/dL (0.7-1.2) 04/05/17 22:44 Est GFR ( Amer) 55 04/05/17 22:44 Est GFR (Non-Af Amer) 46 04/05/17 22:44 POC Glucose (mg/dL) 95 mg/dL (65-110) 04/06/17 12:11 Random Glucose 131 mg/dL (65-105) H 04/05/17 22:44 Hemoglobin A1c 5.8 % (4.2-6.5) 04/06/17 04:24 Calcium 8.6 mg/dl (8.6-10.4) 04/05/17 22:44 Total Bilirubin 0.8 mg/dL (0.2-1.3) 04/05/17 22:44 AST 20 U/L (14-36) 04/05/17 22:44 ALT 36 U/L (9-52) 04/05/17 22:44 Alkaline Phosphatase 83 U/L (38-126) 04/05/17 22:44 Total Creatine Kinase 90 U/L (30-135) 04/06/17 10:17 CK-MB (Mass) 1.48 ng/mL (0.0-3.38) 04/06/17 10:17 Troponin I < 0.0120 ng/mL (0.00-0.120) 04/06/17 10:17 NT-Pro-B Natriuret Pep 493 pg/mL (0-900) 04/05/17 22:44 Total Protein 7.7 g/dL (6.3-8.3) 04/05/17 22:44 Albumin 3.9 g/dL (3.5-5.0) 04/05/17 22:44 Globulin 3.8 gm/dL (2.2-3.9) 04/05/17 22:44 Albumin/Globulin Ratio 1.0 (1.0-2.1) 04/05/17 22:44 Attending/Attestation - Attestation I have personally seen and examined this patient.: Yes I have fully participated in the care of the patient.: Yes I have reviewed all pertinent clinical information, including history, physical exam and plan: Yes Notes (Text): Medical attending: Patient was seen and examined by me, agrees the above note by anesthesiology medical doctor. The patient's cardiac enzymes have been negative for 3 sets now. She was no longer having any reports of chest pain. She still had some neck pain. There is a history of hypertension and there is recordings of her systolic BPs being quite elevated. At this time her systolic BPs have all been in the 120 range. The patient from discussion with her explained that she is very depressed as well as anxious. She was later on evaluated by psychiatry who are concerned that she might be using too much narcotic class medications and instead advised that the patient be discharged with medication for depression which we will be doing. The patient should follow-up at [facility], she also needs to continue taking her previous medication. Thank you very much, Ben Grady
[2017-04-06] MEDS ORDERED: Influenza Vaccine 60 mcg/0.5 mL SYR (4YR UP) IM ONE (16:00)
[2017-04-06 16:39] VITALS: BP 130/73; PULSE 82; RESP 13
--- NOTE | 2017-04-07 10:36 | CARD ---
APPROVED REPORT EKG Measurement Heart [id number] <Conclusion> Normal sinus rhythm T wave abnormality, consider anterolateral ischemia Prolonged QT Abnormal ECG
[2017-04-09] MEDS ORDERED: Influenza Vaccine 60 mcg/0.5 mL SYR (4YR UP) IM ONE (10:00)
[2017-04-09] MEDS ORDERED: Pneumococcal 23-Valent Vaccine IM ONE (10:00)
== END 2017-04-06 18:00 | disposition home or self-care (01) ==
LOC: C.ER 19:24 → INTOOBSV 23:46 → C.9E 23:46 → C.9I 04-06 07:18
PROVIDERS: ADMIT Hospitalist; ATTEND Hospitalist
DX: R07.9 Chest pain, unspecified (principal); E11.9 Type 2 diabetes mellitus without complications; I10 Essential (primary) hypertension; I25.119 Atherosclerotic heart disease of native coronary artery with unspecified angina pectoris; J45.909 Unspecified asthma, uncomplicated; M54.12 Radiculopathy, cervical region; F41.1 Generalized anxiety disorder; F41.0 Panic disorder [episodic paroxysmal anxiety]; F11.90 Opioid use, unspecified, uncomplicated; Z79.82 Long term (current) use of aspirin; Z82.49 Family history of ischemic heart disease and other diseases of the circulatory system; Z79.84 Long term (current) use of oral hypoglycemic drugs
CPT/HCPCS: 71020; 80053; 82948; 83036; 83880; 84484; 85025; 85610; 85730; 87081; 90674; 96372; 96374; G0008; G0378; J1644; J1885

== ENCOUNTER 2017-05-21 13:31 | Inpatient (IN) | payer MEDICARE, OTHER ==
[2017-05-21 13:32] VITALS: BMI 27.4
[2017-05-21] MEDS ORDERED: Sodium Chloride 0.9% 1,000 ML IV ONE (14:13)
--- NOTE | 2017-05-21 14:15 | C.PDOC ---
History Of Present Illness Patient with Hx of HTN, Diabetes, and CAD, presents to the ER with a complaint of epigastric abdominal pain starting this morning associated with nausea and vomiting. Patient reports pain is sharp and radiates to her back. She took pepto -bismol without any relief. She reports she had normal bowel movement prior to arrival. She states the pain is causing her asthma and shortness of breath. Denies fever, chest pain, dizziness. No new weakness, has baseline left sided weakness from prior CVA. Time Seen by Provider: 05/21/17 13:54 Chief Complaint (Nursing): Abdominal Pain History Per: Patient History/Exam Limitations: no limitations Onset/Duration Of Symptoms: Hrs Current Symptoms Are (Timing): Still Present Location Of Pain/Discomfort: Epigastric (sharp that radiates to the back ) Associated Symptoms: Nausea, Vomiting, Other. denies: Fever, Chest Pain, Constipation Last Bowel Movement: Other (prior to arrival) Abnormal Vaginal Bleeding: No Past Medical History Reviewed: Historical Data, Nursing Documentation, Vital Signs Vital Signs: Last Vital Signs Temp 99 F 05/21/17 13:47 Pulse 102 H 05/21/17 17:44 Resp 16 05/21/17 17:44 BP 147/79 05/21/17 17:44 Pulse Ox 98 05/21/17 17:53 - Medical History PMH: Anxiety, Arthritis, Asthma, CAD, Depression, Diabetes, HTN, Hypercholesterolemia Denies: Chronic Kidney Disease Surgical History: Appendectomy (1998), Coronary Stent (x2 04/10/2014) Denies: Pacemaker - [facility] Procedures CORONAR ARTERIOGR-2 CATH (04/10/14) INSERTION OF ONE VASCULAR STENT (04/10/14) INSRT OF DRUG-ELUTING CORON ARTERY STENTS(S) (04/10/14) LEFT HEART CARDIAC CATH (04/10/14) LT HEART ANGIOCARDIOGRAM (03/03/14) OCCUPATIONAL THERAPY (08/15/14) PERCUTANEOUS TRANSLUMINAL CORONARY ANGIOPLASTY [PTCA] (04/10/14) PHYSICAL THERAPY NEC (08/15/14) PROCEDURE ON SINGLE VESSEL (04/10/14) Family History: States: CAD, Hypertension - Social History Hx Tobacco Use: No Hx Alcohol Use: No Hx Substance Use: No - Immunization History Hx Tetanus Toxoid Vaccination: Yes Hx Influenza Vaccination: No Hx Pneumococcal Vaccination: No Review Of Systems Except As Marked, All Systems Reviewed And Found Negative. Constitutional: Negative for: Fever Cardiovascular: Negative for: Chest Pain Gastrointestinal: Positive for: Nausea, Vomiting, Abdominal Pain (epigastric pain that radiates to her back ) Musculoskeletal: Positive for: Other (baseline left sided weakness from prior cva) Skin: Negative for: Rash Neurological: Negative for: Weakness Physical Exam - Physical Exam Additional Physical Exam Comments: Appears: uncomfortable in pain, nontoxic Skin: Warm, Dry, No Rash, No diaphoresis Head: Atraumatic, Normacephalic Eye(s): bilateral: Normal Inspection Oral Mucosa: Moist Neck: Normal ROM Chest: Symmetrical, nontender Cardiovascular: Rhythm Regular, No Murmur Respiratory: Normal Breath Sounds, No Rales, No Rhonchi, No Wheezing Gastrointestinal/Abdominal: Bowel Sounds active, Soft, Epigastric Tenderness, No Guarding, Midline surgical scar, negative Freedman's sign Extremity: Bilateral: Atraumatic, Normal ROM Neurological/Psych: Oriented x3, Normal Speech Gait: unable to assess ED Course And Treatment - Laboratory Results Result Diagrams: 05/21/17 14:19 05/21/17 14:19 Lab Interpretation: Abnormal ECG: Interpreted By Me, Viewed By Me ECG Rhythm: Sinus Rhythm ECG Interpretation: No Acute Changes Interpretation Of ECG: NS at 96 bpm with LVH, LAD, Twave anterior laterally, unchanged from 04/05/17, prolonged QT Rate From EC O2 Sat by Pulse Oximetry: 98 (RA) - CT Scan/US Abdomen Other Rad Studies (CT/US): Read By Radiologist, Radiology Report Reviewed CT/US Interpretation: Accession No. : [id number]. Patient Name / ID : FERNANDA PALOMO / [id number]. Exam Date : 05/21/2017 15:18:19 ( Approved ). Study Comment : Sex / Age : F / 62Y. Creator : morris danielle. Dictator : Denise Temple MD. Dyed Yarn Operator : Lpn Rn : Denise Temple MD. Approver2 : Report Date : 05/21/2017 15:35:17. My Comment : . PROCEDURE: CT Abdomen and Pelvis with contrast. HISTORY: upper abd pain radiates to back, poss panc. COMPARISON: CT of the abdomen and pelvis without contrast performed 03/04/16. TECHNIQUE: Contrast dose: 100 mL Visipaque. Radiation dose: Total exam DLP = 853.63 mGy-cm. This CT exam was performed using one or more of the following dose reduction techniques: Automated exposure control, adjustment of the mA and/or kV according to patient size, and/ or use of iterative reconstruction technique. FINDINGS: LOWER THORAX: No visible consolidation, pleural effusion, or pneumothorax. LIVER: Unremarkable. GALLBLADDER AND BILE DUCTS: Cholecystectomy. PANCREAS: Unremarkable. SPLEEN: Unremarkable. ADRENALS: Mild bilateral adrenal gland hypertrophy. KIDNEYS AND URETERS: The kidneys enhance symmetrically. No hydronephrosis or obstructing calculus identified. Too small characterize renal hypodensities; statistically likely cysts. VASCULATURE: No aortic aneurysm. BOWEL: Stomach is nondistended. Lack of oral contrast limits evaluation for bowel pathology. Dilated fluid fluid bowel loops which decompressed distal small bowel consistent with small bowel obstruction. APPENDIX: No secondary signs of acute appendicitis. PERITONEUM: Small perihepatic and perisplenic ascites. Small pelvic free fluid. No definite free air. LYMPH NODES: No bulky adenopathy identified. BLADDER: Mildly thick-walled urinary bladder. REPRODUCTIVE: The uterus present. BONES: Mild degenerative changes. OTHER FINDINGS: None. IMPRESSION: Findings compatible with small bowel obstruction as above. Mildly thick-walled urinary bladder. Correlate with urinalysis. Small perihepatic and perisplenic ascites. Small pelvic free fluid. Additional findings as above. Medical Decision Making Medical Decision Making: Impression: epigastric abdominal pain Plan: * EKG * Labs * CT A/P with IV contrast Prior records reviewed patient las seen and admitted on 04/05/17 for Chest pain Progress: labs reviewed, leukocytosis CT shows SBO 1620 Page and speak with surgical garment inspector Dr Upton who will come to evaluate patient Patient reevaluated and states she is still having pain. No vomiting during ED evaluation Case discussed with Dr. Lamar Nichole, PMD who accepts Med/Surg at 1700, asks to consult Dr Ajith for Surgery. 1706: d/w - Surgeon will follow- agrees with NGT. Recommended to d/w surgical garment inspector. 1708 resident services manager Marisela Upton in ED to evaluate patient. Disposition - Disposition Disposition: HOSPITALIZED Disposition Time: 17:07 Condition: STABLE - POA Present On Arrival: None - Clinical Impression Clinical Impression: Small bowel obstruction - PA / [employer]EN [employer] HARDWARE INSTALLER / Resident Statement MD/DO has examined the patient and agrees with the treatment plan. - Scribe Statement The provider has reviewed the documentation as recorded by the Scribe Whit Garza Decision To Admit - Pt Status Changed To: Hospital Disposition Of: Inpatient - Admit Certification Admit to Inpatient:: After my assessment, the patient will require hospitalization for at least two midnights. This is because of the severity of symptoms shown, intensity of services needed, and/or the medical risk in this patient being treated as an outpatient. - InPatient: Physician Admission Certification:: Patient with acute abdominal pain and SBO on CT scan. Needs admission. Dr Canseco to follow - . Bed Request Type: Regular Admitting Physician: Khai Nichole Patient Diagnosis: Small bowel obstruction
[2017-05-21 14:23] LABS: BASO # 0.1 K/uL (0.0-0.2); BASO % 0.5 % (0.0-2.0); EOS # 0.1 K/uL (0.0-0.7); EOS % 0.9 % (0.0-4.0); LYMPH % 7.2 % (20.0-40.0); MEAN CORPUSCULAR HEMOGLOBIN 29.4 pg (27.0-31.0); MEAN CORPUSCULAR HGB CONC 34.6 g/dL (33.0-37.0); MEAN PLATELET VOLUME 6.8 fL (7.2-11.7); MONO # 0.4 K/uL (0.0-0.8); NEUT # 11.8 K/uL (1.8-7.0); NEUT % 88.4 % (50.0-75.0); PLATELET COUNT 250 K/uL (130-400); RBC 4.08 Mil/uL (3.80-5.20); RED CELL DISTRIBUTION WIDTH 13.4 % (11.5-14.5); WHITE BLOOD COUNT 13.4 K/uL (4.8-10.8)
[2017-05-21 14:25] LABS: SQUAMOUS EPITHIAL 1 /hpf (0-5); URINE BILIRUBIN NEGATIVE (NEGATIVE); URINE BLOOD 1+ (NEGATIVE); URINE CLARITY Clear (Clear); URINE COLOR Yellow (YELLOW); URINE GLUCOSE (UA) NORMAL (Normal); URINE LEUKOCYTE ESTERASE NEG Leu/uL (Negative); URINE NITRATE NEGATIVE (NEGATIVE); URINE PROTEIN 1+ mg/dL (NEGATIVE); URINE UROBILINOGEN NORMAL mg/dL (0.2-1.0)
[2017-05-21 14:36] LABS: ALB/GLOB RATIO 1.1 (1.0-2.1); ALBUMIN 3.9 g/dL (3.5-5.0); CALCIUM 8.8 mg/dl (8.6-10.4)
[2017-05-21 14:44] LABS: LYMPHOCYTE 7 % (20-40); MONOCYTE 3 % (0-10); NEUTROPHIL 90 % (50-75); PLATELET ESTIMATE NORMAL (NORMAL); TOTAL CELLS COUNTED 100
[2017-05-21 14:45] LABS: ANISOCYTOSIS SLIGHT; TOXIC GRANULATION PRESENT
[2017-05-21 14:46] LABS: HYPOCHROMIC SLIGHT; POLYCHROMIC SLIGHT
[2017-05-21] MEDS ORDERED: Iodixanol 320 MG/ML 100 ML BOTTLE IV ONE (15:07)
--- NOTE | 2017-05-21 16:09 | CT ---
PROCEDURE: CT Abdomen and Pelvis with contrast HISTORY: upper abd pain radiates to back, poss panc COMPARISON: CT of the abdomen and pelvis without contrast performed 03/04/16 TECHNIQUE: Contrast dose: 100 mL Visipaque Radiation dose: Total exam DLP = 853.63 mGy-cm. This CT exam was performed using one or more of the following dose reduction techniques: Automated exposure control, adjustment of the mA and/or kV according to patient size, and/or use of iterative reconstruction technique. FINDINGS: LOWER THORAX: No visible consolidation, pleural effusion, or pneumothorax. LIVER: Unremarkable. GALLBLADDER AND BILE DUCTS: Cholecystectomy. PANCREAS: Unremarkable. SPLEEN: Unremarkable. ADRENALS: Mild bilateral adrenal gland hypertrophy. KIDNEYS AND URETERS: The kidneys enhance symmetrically. No hydronephrosis or obstructing calculus identified. Too small characterize renal hypodensities; statistically likely cysts. VASCULATURE: No aortic aneurysm. BOWEL: Stomach is nondistended. Lack of oral contrast limits evaluation for bowel pathology. Dilated fluid fluid bowel loops which decompressed distal small bowel consistent with small bowel obstruction. APPENDIX: No secondary signs of acute appendicitis. PERITONEUM: Small perihepatic and perisplenic ascites. Small pelvic free fluid. No definite free air. LYMPH NODES: No bulky adenopathy identified. BLADDER: Mildly thick-walled urinary bladder. REPRODUCTIVE: The uterus present. BONES: Mild degenerative changes. OTHER FINDINGS: None. IMPRESSION: Findings compatible with small bowel obstruction as above. Mildly thick-walled urinary bladder. Correlate with urinalysis. Small perihepatic and perisplenic ascites. Small pelvic free fluid. Additional findings as above.
[2017-05-21] MEDS ORDERED: Morphine 4 MG/ML VIAL ONE (16:40)
--- NOTE | 2017-05-21 18:23 | CP.PCM.CON ---
History of Present Illness - History of Present Illness History of Present Illness: General Surgery Dr. Canseco 62 y/o F w/ PMHx of CAD, HTN, DM, HLD, CVA presents to the ED c/o abd pain. Pt states pain began this AM. Pain described as sharp, intermittent, non-radiating , w/ localization to the epigastrium. Pt reports having has similar pain in the past 2/2 chronic constipation. Usually the pain resolves w/ BM however, this episode is unrelieved by BM. Pt admits to 1 episode of forced vomiting, pt reports thinking it would relive her abd pain. Pt admits to feeling bloated/ distended. Pt denies recent illness, F/C, nausea, diarrhea. PMHx: see above, asthma Meds: reviewed in chart NKDA PSHx: fibroidectomy, appy, jennifer, cardiac stents x3 SHx: denies tobacco, EtOH, drug use FHx: non-contributory Review of Systems - Review of Systems All systems: reviewed and no additional remarkable complaints except (see HPI) Past Patient History - Infectious Disease Hx of Infectious Diseases: None - Past Medical History & Family History Past Medical History?: Yes - Past Social History Smoking Status: Never Smoked - CARDIAC Hx Hypercholesterolemia: Yes Hx Hypertension: Yes Hx Pacemaker: No - PULMONARY Hx Asthma: Yes - NEUROLOGICAL Hx Neurological Disorder: Yes HX Cerebrovascular Accident: Yes (may 2014; left sided weakness) - HEENT Hx HEENT Problems: Yes Other/Comment: EYES W/ PRESSURE - RENAL Hx Chronic Kidney Disease: No - ENDOCRINE/METABOLIC Hx Endocrine Disorders: Yes Hx Diabetes Mellitus Type 2: Yes - HEMATOLOGICAL/ONCOLOGICAL Hx Human Immunodeficiency Virus (HIV): No - INTEGUMENTARY Hx Dermatological Problems: No - MUSCULOSKELETAL/RHEUMATOLOGICAL Hx Arthritis: Yes - GASTROINTESTINAL Hx Gastrointestinal Disorders: No - GENITOURINARY/GYNECOLOGICAL Hx Genitourinary Disorders: No - PSYCHIATRIC Hx Anxiety: Yes Hx Depression: Yes Hx Substance Use: No - SURGICAL HISTORY Hx Appendectomy: Yes (1998) Hx Coronary Stent: Yes (x2 04/10/2014) - ANESTHESIA Hx Anesthesia: Yes Hx Anesthesia Reactions: No Hx Malignant Hyperthermia: No Meds Allergies/Adverse Reactions: Allergies Allergy/AdvReac Type Severity Reaction Status Date / Time No Known Allergies Allergy Verified 05/21/17 13:50 - Medications Medications: Current Medications Potassium Chloride/Dextrose/Sod Cl (Potassium Chl 20 Meq In D5-1/2ns) 1,000 mls @ 83 mls/hr IV .Q12H3M [facility] Ondansetron HCl (Zofran Inj) 4 mg IVP Q4 PRN PRN Reason: Nausea/Vomiting Pantoprazole Sodium (Protonix Inj) 40 mg IVP DAILY [facility] Physical Exam - Constitutional Appears: Non-toxic, No Acute Distress - Head Exam Head Exam: NORMAL INSPECTION - Eye Exam Eye Exam: Normal appearance - ENT Exam ENT Exam: Mucous Membranes Moist - Respiratory Exam Respiratory Exam: NORMAL BREATHING PATTERN. absent: Accessory Muscle Use, Respiratory Distress - GI/Abdominal Exam GI & Abdominal Exam: Distended (moderate), Soft. absent: Firm, Guarding, Rebound, Rigid, Tenderness - Extremities Exam Extremities exam: Positive for: normal inspection - Neurological Exam Neurological exam: Alert, Oriented x3 - Psychiatric Exam Psychiatric exam: Normal Affect, Normal Mood - Skin Skin Exam: Dry, Intact, Normal Color, Warm Results - Vital Signs Recent Vital Signs: Last Vital Signs Temp 99 F 05/21/17 13:47 Pulse 102 H 05/21/17 17:44 Resp 16 05/21/17 17:44 BP 147/79 05/21/17 17:44 Pulse Ox 98 05/21/17 18:07 - Labs Result Diagrams: 05/21/17 14:19 05/21/17 14:19 Labs: Laboratory Results - last 24 hr 05/21/17 05/21/17 05/21/17 14:19 14:19 14:19 WBC 13.4 H D RBC 4.08 Hgb 12.0 Hct 34.7 MCV 85.0 MCH 29.4 MCHC 34.6 RDW 13.4 Plt Count 250 MPV 6.8 L Neut % (Auto) 88.4 H Lymph % (Auto) 7.2 L [place] % (Auto) 3.0 Eos % (Auto) 0.9 Baso % (Auto) 0.5 Neut # 11.8 H Lymph # 1.0 [place] # 0.4 Eos # 0.1 Baso # 0.1 Neutrophils % (Manual) 90 H Lymphocytes % (Manual) 7 L Monocytes % (Manual) 3 Toxic Granulation Present Platelet Estimate Normal Polychromasia Slight Hypochromasia (manual) Slight Anisocytosis (manual) Slight Sodium 139 Potassium 4.2 Chloride 104 Carbon Dioxide 26 Anion Gap 13 BUN 22 H Creatinine 1.2 Est GFR ( Amer) 55 Est GFR (Non-Af Amer) 46 Random Glucose 177 H Calcium 8.8 Total Bilirubin 0.5 AST 22 ALT 21 Alkaline Phosphatase 76 Total Protein 7.5 Albumin 3.9 Globulin 3.6 Albumin/Globulin Ratio 1.1 Amylase 82 Lipase 60 Urine Color Yellow Urine Clarity Clear Urine pH 6.0 Ur Specific [place] 1.013 Urine Protein 1+ H Urine Glucose (UA) Normal Urine Ketones Negative Urine Blood 1+ H Urine Nitrate Negative Urine Bilirubin Negative Urine Urobilinogen Normal Ur Leukocyte Esterase Neg Urine WBC (Auto) < 1 Urine RBC (Auto) 4 H Ur Squamous Epith Cells 1 - Imaging and Cardiology CT scan - abdomen Status: Image reviewed by me, Report reviewed by me Assessment & Plan - Assessment and Plan (Free Text) Assessment: 62 y/o F w/ recurrent SBO - NPO except ice chips/meds - NGT if vomiting - soap suds enemas - pain management - anti-emetics - monitor bowel fxn - encourage ambulation Pt discussed w/ Dr. Ajith Upton DO PGY2
[2017-05-21] MEDS: Potassium Ch 20mEq in D5-1/2NS 1,000 ML IV SCH (19:09)
[2017-05-21] MEDS: Nitroglycerin 2% Ointment Foilpak UD TOP SCH (21:35)
[2017-05-21] MEDS: (Novolog) Insulin Aspart, Recombinant 100 u/ml 10 ml vial SC SCH (22:42)
[2017-05-22] MEDS: Potassium Ch 20mEq in D5-1/2NS 1,000 ML IV SCH ×2 (06:06→18:36)
[2017-05-22] MEDS: Nitroglycerin 2% Ointment Foilpak UD TOP SCH ×3 (06:06→22:12)
[2017-05-22] MEDS: (Novolog) Insulin Aspart, Recombinant 100 u/ml 10 ml vial SC SCH ×4 (08:00→22:15)
--- NOTE | 2017-05-22 08:52 | CP.PCM.PN ---
Subjective - Date & Time of Evaluation Date of Evaluation: 05/22/17 Time of Evaluation: 06:45 - Subjective Subjective: General Surgery Dr. Canseco Pt S&E @bedside. NAEO. pt reports improved abd pain and distention. denies nausea or vomiting. (+)Flatus, (-)BM. Pt holding off soap suds enema until female nurse available for administration. Objective - Vital Signs/Intake and Output Vital Signs (last 24 hours): Temp Pulse Resp BP Pulse Ox 98.1 F 81 17 149/77 99 05/22/17 07:00 05/22/17 07:00 05/22/17 07:00 05/22/17 07:00 05/22/17 07:00 Intake and Output: 05/22/17 05/22/17 06:59 18:59 Intake Total 664 Balance 664 - Medications Medications: Current Medications Potassium Chloride/Dextrose/Sod Cl (Potassium Chl 20 Meq In D5-1/2ns) 1,000 mls @ 83 mls/hr IV .Q12H3M [facility] Last Admin: 05/22/17 06:06 Dose: 83 mls/hr Insulin Aspart (Novolog) 0 unit SC ACHS [facility] PRN Reason: Protocol Last Admin: 05/22/17 08:00 Dose: Not Given Morphine Sulfate (Morphine) 2 mg IVP Q4 PRN PRN Reason: Pain, moderate (4-7) Last Admin: 05/22/17 01:04 Dose: 2 mg Nitroglycerin (Nitro-Bid 2% Oint) 1 ea TOP Q8 [facility] Last Admin: 05/22/17 06:06 Dose: 1 ea Ondansetron HCl (Zofran Inj) 4 mg IVP Q4 PRN PRN Reason: Nausea/Vomiting Pantoprazole Sodium (Protonix Inj) 40 mg IVP DAILY [facility] - Labs Labs: 05/21/17 14:19 05/21/17 14:19 - Constitutional Appears: Non-toxic, No Acute Distress - Head Exam Head Exam: NORMAL INSPECTION - Eye Exam Eye Exam: Normal appearance - ENT Exam ENT Exam: Mucous Membranes Moist - Respiratory Exam Respiratory Exam: NORMAL BREATHING PATTERN. absent: Accessory Muscle Use, Respiratory Distress - GI/Abdominal Exam GI & Abdominal Exam: Distended (minimal), Soft. absent: Firm, Guarding, Tenderness, Rebound - Extremities Exam Extremities Exam: Normal Inspection - Neurological Exam Neurological Exam: Alert, Awake, Oriented x3 - Psychiatric Exam Psychiatric exam: Normal Affect, Normal Mood - Skin Skin Exam: Dry, Intact, Normal Color, Warm Assessment and Plan - Assessment and Plan (Free Text) Assessment: 62 y/o F w/ recurrent SBO, resolving - advance to CLD - soap suds enemas PRN - NGT if vomiting starts - cont pain management - cont anti-emetics - monitor bowel fxn - encourage OOB to chair/Amb Pt discussed w/ Dr. Ajith Upton DO PGY2
--- NOTE | 2017-05-22 13:56 | CP.PCM.PN ---
Subjective - Date & Time of Evaluation Date of Evaluation: 05/22/17 Time of Evaluation: 13:54 - Subjective Subjective: CC: abdominal pain HPI: yo y/o female h/o CAD, Diabetes, PVD seen in ER c/o abdomen pain and vomitting. CT abdomen suggestive intestinal obstruction. No SOB. No chestpain. Objective - Vital Signs/Intake and Output Vital Signs (last 24 hours): Temp Pulse Resp BP Pulse Ox 98.1 F 81 17 149/77 99 05/22/17 07:00 05/22/17 07:00 05/22/17 07:00 05/22/17 07:00 05/22/17 07:00 Intake and Output: 05/22/17 05/22/17 06:59 18:59 Intake Total 664 Balance 664 - Medications Medications: Current Medications Potassium Chloride/Dextrose/Sod Cl (Potassium Chl 20 Meq In D5-1/2ns) 1,000 mls @ 83 mls/hr IV .Q12H3M [facility] Last Admin: 05/22/17 06:06 Dose: 83 mls/hr Insulin Aspart (Novolog) 0 unit SC ACHS [facility] PRN Reason: Protocol Last Admin: 05/22/17 11:23 Dose: Not Given Morphine Sulfate (Morphine) 2 mg IVP Q4 PRN PRN Reason: Pain, moderate (4-7) Last Admin: 05/22/17 12:56 Dose: 2 mg Nitroglycerin (Nitro-Bid 2% Oint) 1 ea TOP Q8 [facility] Last Admin: 05/22/17 06:06 Dose: 1 ea Ondansetron HCl (Zofran Inj) 4 mg IVP Q4 PRN PRN Reason: Nausea/Vomiting Pantoprazole Sodium (Protonix Inj) 40 mg IVP DAILY [facility] Last Admin: 05/22/17 11:00 Dose: 40 mg - Labs Labs: 05/21/17 14:19 05/21/17 14:19 - Constitutional Appears: Chronically Ill - Head Exam Head Exam: NORMAL INSPECTION - Eye Exam Eye Exam: Normal appearance Pupil Exam: NORMAL ACCOMODATION - ENT Exam ENT Exam: Normal Exam - Neck Exam Neck Exam: Normal Inspection - Respiratory Exam Respiratory Exam: NORMAL BREATHING PATTERN - Cardiovascular Exam Cardiovascular Exam: REGULAR RHYTHM - GI/Abdominal Exam GI & Abdominal Exam: Soft - Rectal Exam Rectal Exam: Deferred - Extremities Exam Extremities Exam: absent: Pedal Edema - Neurological Exam Neurological Exam: Alert - Psychiatric Exam Psychiatric exam: Normal Affect Assessment and Plan (1) Small bowel obstruction Status: Acute (2) CAD (coronary artery disease) Status: Chronic (3) Diabetes Status: Chronic - Assessment and Plan (Free Text) Assessment: A?P: Contine medications. Appreciate Surgical Notes.
[2017-05-23] MEDS: Nitroglycerin 2% Ointment Foilpak UD TOP SCH ×3 (05:25→21:55)
[2017-05-23] MEDS: Potassium Ch 20mEq in D5-1/2NS 1,000 ML IV SCH ×2 (05:27→17:46)
[2017-05-23 07:49] LABS: BASO % 0.4 % (0.0-2.0); EOS # 0.4 K/uL (0.0-0.7); EOS % 5.7 % (0.0-4.0); HEMOGLOBIN 10.2 g/dL (11.0-16.0); LYMPH # 1.6 K/uL (1.0-4.3); LYMPH % 21.9 % (20.0-40.0); MEAN CELL VOLUME 85.1 fL (81.0-99.0); MEAN CORPUSCULAR HEMOGLOBIN 29.9 pg (27.0-31.0); MEAN CORPUSCULAR HGB CONC 35.1 g/dL (33.0-37.0); MEAN PLATELET VOLUME 7.1 fL (7.2-11.7); MONO # 0.6 K/uL (0.0-0.8); MONO % 7.6 % (0.0-10.0); NEUT # 4.8 K/uL (1.8-7.0); NEUT % 64.4 % (50.0-75.0); RBC 3.4 Mil/uL (3.80-5.20); RED CELL DISTRIBUTION WIDTH 13.4 % (11.5-14.5); WHITE BLOOD COUNT 7.4 K/uL (4.8-10.8)
[2017-05-23] MEDS: (Novolog) Insulin Aspart, Recombinant 100 u/ml 10 ml vial SC SCH ×4 (07:53→21:30)
[2017-05-23 08:30] LABS: ALB/GLOB RATIO 1.1 (1.0-2.1); ALBUMIN 3.4 g/dL (3.5-5.0); ALT/SGPT 21 U/L (9-52); AST/SGOT 19 U/L (14-36); BLOOD UREA NITROGEN 10 mg/dL (7-17); CALCIUM 8.3 mg/dl (8.6-10.4); GFR AFRICAN-AMERICAN > 60; GFR NON-AFRICAN AMERICAN 57
--- NOTE | 2017-05-23 09:22 | CP.PCM.PN ---
Subjective - Date & Time of Evaluation Date of Evaluation: 05/23/17 Time of Evaluation: 08:55 - Subjective Subjective: Pt pain on R leg; no CP, no SOB, no edema Able to tolerate liquid diet Objective - Vital Signs/Intake and Output Vital Signs (last 24 hours): Temp Pulse Resp BP Pulse Ox 98.4 F 73 20 148/62 98 05/23/17 08:24 05/23/17 08:24 05/23/17 08:24 05/23/17 08:24 05/23/17 08:24 Intake and Output: 05/23/17 05/23/17 06:59 18:59 Intake Total 764 Balance 764 - Medications Medications: Current Medications Potassium Chloride/Dextrose/Sod Cl (Potassium Chl 20 Meq In D5-1/2ns) 1,000 mls @ 83 mls/hr IV .Q12H3M [facility] Last Admin: 05/23/17 05:27 Dose: 83 mls/hr Insulin Aspart (Novolog) 0 unit SC ACHS [facility] PRN Reason: Protocol Last Admin: 05/23/17 07:53 Dose: Not Given Morphine Sulfate (Morphine) 2 mg IVP Q4 PRN PRN Reason: Pain, moderate (4-7) Last Admin: 05/23/17 04:35 Dose: 2 mg Nitroglycerin (Nitro-Bid 2% Oint) 1 ea TOP Q8 [facility] Last Admin: 05/23/17 05:25 Dose: 1 ea Ondansetron HCl (Zofran Inj) 4 mg IVP Q4 PRN PRN Reason: Nausea/Vomiting Pantoprazole Sodium (Protonix Inj) 40 mg IVP DAILY [facility] Last Admin: 05/22/17 11:00 Dose: 40 mg - Labs Labs: 05/23/17 07:21 05/23/17 07:21 - Constitutional Appears: No Acute Distress - Eye Exam Eye Exam: Normal appearance - ENT Exam ENT Exam: Mucous Membranes Moist - Neck Exam Neck Exam: Full ROM. absent: Lymphadenopathy, Normal Inspection - Respiratory Exam Respiratory Exam: absent: Clear to Ausculation Bilateral, Rales, Rhonchi, Wheezes - Cardiovascular Exam Cardiovascular Exam: +S1, +S2. absent: Gallop, REGULAR RHYTHM, JVD, Murmur - GI/Abdominal Exam GI & Abdominal Exam: Soft. absent: Tenderness, Mass - Extremities Exam Extremities Exam: Full ROM. absent: Calf Tenderness, Joint Swelling, Normal Capillary Refill, Pedal Edema Assessment and Plan - Assessment and Plan (Free Text) Assessment: Intestinal obtruction NIDDM; CAD Cont meds/ Add Gabapentin when obstruction is resolved
--- NOTE | 2017-05-23 10:54 | CP.PCM.PN ---
Subjective - Date & Time of Evaluation Date of Evaluation: 05/23/17 Time of Evaluation: 10:51 - Subjective Subjective: Surgery Pt s&e. NAEON. Had Bm. Denies F/C/N/V/D/CP/SOB. + void. Pain controlled. Objective - Vital Signs/Intake and Output Vital Signs (last 24 hours): Temp Pulse Resp BP Pulse Ox 98.4 F 73 20 148/62 98 05/23/17 08:24 05/23/17 08:24 05/23/17 08:24 05/23/17 08:24 05/23/17 08:24 Intake and Output: 05/23/17 05/23/17 06:59 18:59 Intake Total 764 Balance 764 - Medications Medications: Current Medications Potassium Chloride/Dextrose/Sod Cl (Potassium Chl 20 Meq In D5-1/2ns) 1,000 mls @ 83 mls/hr IV .Q12H3M [facility] Last Admin: 05/23/17 05:27 Dose: 83 mls/hr Insulin Aspart (Novolog) 0 unit SC ACHS [facility] PRN Reason: Protocol Last Admin: 05/23/17 07:53 Dose: Not Given Morphine Sulfate (Morphine) 2 mg IVP Q4 PRN PRN Reason: Pain, moderate (4-7) Last Admin: 05/23/17 04:35 Dose: 2 mg Nitroglycerin (Nitro-Bid 2% Oint) 1 ea TOP Q8 [facility] Last Admin: 05/23/17 05:25 Dose: 1 ea Ondansetron HCl (Zofran Inj) 4 mg IVP Q4 PRN PRN Reason: Nausea/Vomiting Pantoprazole Sodium (Protonix Inj) 40 mg IVP DAILY [facility] Last Admin: 05/23/17 09:31 Dose: 40 mg - Labs Labs: 05/23/17 07:21 05/23/17 07:21 - Constitutional Appears: No Acute Distress - Head Exam Head Exam: ATRAUMATIC, NORMAL INSPECTION, NORMOCEPHALIC - Eye Exam Eye Exam: EOMI, Normal appearance, PERRL Pupil Exam: NORMAL ACCOMODATION, PERRL - ENT Exam ENT Exam: Mucous Membranes Moist, Normal Exam - Neck Exam Neck Exam: Full ROM, Normal Inspection. absent: Lymphadenopathy - Respiratory Exam Respiratory Exam: Clear to Ausculation Bilateral, NORMAL BREATHING PATTERN - GI/Abdominal Exam GI & Abdominal Exam: Soft, Normal Bowel Sounds. absent: Distended, Firm, Guarding, Rigid, Tenderness - Extremities Exam Extremities Exam: Full ROM, Normal Capillary Refill, Normal Inspection. absent : Joint Swelling, Pedal Edema - Back Exam Back Exam: NORMAL INSPECTION - Neurological Exam Neurological Exam: Alert, Awake, CN II-XII Intact, Normal Gait, Oriented x3 - Psychiatric Exam Psychiatric exam: Normal Affect, Normal Mood - Skin Skin Exam: Dry, Intact, Normal Color, Warm Assessment and Plan - Assessment and Plan (Free Text) Assessment: 62 y/o F w/ recurrent SBO, resolved: Having BM -Clear for DC for surgical standpoint - advance diet as tolerated - soap suds enemas PRN - cont pain management - monitor bowel fxn - encourage OOB to chair/Amb Pt discussed w/ Dr. Canseco
--- NOTE | 2017-05-23 14:54 | CARD ---
APPROVED REPORT EKG Measurement Heart [id number] <Conclusion> Normal sinus rhythm Minimal voltage criteria for LVH, may be normal variant T wave abnormality, consider anterolateral ischemia Prolonged QT Abnormal ECG
[2017-05-24] MEDS: Nitroglycerin 2% Ointment Foilpak UD TOP SCH ×2 (05:55→13:08)
[2017-05-24] MEDS: Potassium Ch 20mEq in D5-1/2NS 1,000 ML IV SCH (05:55)
[2017-05-24] MEDS: (Novolog) Insulin Aspart, Recombinant 100 u/ml 10 ml vial SC SCH ×3 (07:59→17:35)
--- NOTE | 2017-05-24 09:24 | CP.PCM.PN ---
Subjective - Date & Time of Evaluation Date of Evaluation: 05/24/17 Time of Evaluation: 08:55 - Subjective Subjective: Pt no complain exc burning on R leg/ foot. No CP, no SOB, no edema or palpitation Objective - Vital Signs/Intake and Output Vital Signs (last 24 hours): Temp Pulse Resp BP Pulse Ox 98.0 F 76 20 149/70 98 05/24/17 08:25 05/24/17 08:25 05/24/17 08:25 05/24/17 08:25 05/24/17 08:25 Intake and Output: 05/24/17 05/24/17 06:59 18:59 Intake Total 904 Balance 904 - Medications Medications: Current Medications Potassium Chloride/Dextrose/Sod Cl (Potassium Chl 20 Meq In D5-1/2ns) 1,000 mls @ 83 mls/hr IV .Q12H3M [facility] Last Admin: 05/24/17 05:55 Dose: 83 mls/hr Insulin Aspart (Novolog) 0 unit SC ACHS [facility] PRN Reason: Protocol Last Admin: 05/24/17 07:59 Dose: Not Given Morphine Sulfate (Morphine) 2 mg IVP Q4 PRN PRN Reason: Pain, moderate (4-7) Last Admin: 05/24/17 08:27 Dose: 2 mg Nitroglycerin (Nitro-Bid 2% Oint) 1 ea TOP Q8 [facility] Last Admin: 05/24/17 05:55 Dose: 1 ea Ondansetron HCl (Zofran Inj) 4 mg IVP Q4 PRN PRN Reason: Nausea/Vomiting Pantoprazole Sodium (Protonix Inj) 40 mg IVP DAILY [facility] Last Admin: 05/23/17 09:31 Dose: 40 mg Pregabalin (Lyrica) 75 mg PO ONCE ONE Stop: 05/24/17 10:01 - Labs Labs: 05/23/17 07:21 05/23/17 07:21 - Constitutional Appears: No Acute Distress - Eye Exam Eye Exam: Normal appearance - ENT Exam ENT Exam: Mucous Membranes Moist - Neck Exam Neck Exam: Full ROM, Normal Inspection. absent: Thyromegaly - Respiratory Exam Respiratory Exam: Clear to Ausculation Bilateral. absent: Rales, Rhonchi, Wheezes - Cardiovascular Exam Cardiovascular Exam: +S1, +S2. absent: Gallop, REGULAR RHYTHM, JVD, Murmur - GI/Abdominal Exam GI & Abdominal Exam: Soft, Normal Bowel Sounds. absent: Tenderness - Extremities Exam Extremities Exam: Full ROM, Normal Capillary Refill, Normal Inspection. absent : Calf Tenderness, Joint Swelling Assessment and Plan - Assessment and Plan (Free Text) Assessment: Intestinal Obstruction - resolved CAD, NIDDM Will discharge on Lyrica Cont all OPD meds F/up w/ PMD in 3-5 days
[2017-05-24 15:26] VITALS: BP 144/82; PULSE 70; RESP 18; TEMP 98; O2SAT 99
== END 2017-05-24 18:45 | disposition home or self-care (01) | DRG 389 ==
LOC: C.ER 13:31 → C.9E 17:08 → C.6T 21:25
PROVIDERS: ADMIT Internal Medicine; ATTEND Internal Medicine
DX: K56.609 Unspecified intestinal obstruction, unspecified as to partial versus complete obstruction (principal); I69.354 Hemiplegia and hemiparesis following cerebral infarction affecting left non-dominant side; E11.51 Type 2 diabetes mellitus with diabetic peripheral angiopathy without gangrene; I10 Essential (primary) hypertension; I25.10 Atherosclerotic heart disease of native coronary artery without angina pectoris; J45.909 Unspecified asthma, uncomplicated; E78.00 Pure hypercholesterolemia, unspecified; E78.5 Hyperlipidemia, unspecified; Z79.84 Long term (current) use of oral hypoglycemic drugs; Z90.49 Acquired absence of other specified parts of digestive tract; Z95.5 Presence of coronary angioplasty implant and graft

== ENCOUNTER 2017-08-16 00:05 | Inpatient (IN) | payer MEDICARE ==
[2017-08-16 00:06] VITALS: BMI 27.4
[2017-08-16] MEDS ORDERED: Aspirin 325 mg EC Tablets PO STA (00:15)
--- NOTE | 2017-08-16 00:16 | C.PDOC ---
History Of Present Illness 62 year old female presents complaining of chest pain, occurring intermittently tonight. Patient reports first episode of chest pain began earlier at 8pm but went away. Chest pain recurred again, prompting patient to come to the ED. Reports she took an extra dose of her blood pressure medication. Pain is described as pressure-like, non radiating. Time Seen by Provider: 08/16/17 00:14 Chief Complaint (Nursing): Chest Pain History Per: Patient History/Exam Limitations: no limitations Onset/Duration Of Symptoms: Intermittent Episodes Current Symptoms Are (Timing): Still Present Severity: Mild Pain Scale Rating Of: 4 Quality: Pressure Exacerbating Factors: None Alleviating Factors: None Recent travel outside of the [place]: No Past Medical History Reviewed: Historical Data, Nursing Documentation, Vital Signs Vital Signs: Last Vital Signs Temp 98.1 F 08/16/17 00:07 Pulse 88 08/16/17 04:28 Resp 18 08/16/17 04:28 BP 168/84 H 08/16/17 04:28 Pulse Ox 95 08/16/17 04:28 - Medical History PMH: Anxiety, Arthritis, Asthma, CAD, Depression, Diabetes, HTN, Hypercholesterolemia Denies: HIV, Chronic Kidney Disease Surgical History: Appendectomy (1998), Coronary Stent (x2 04/10/2014) Denies: Pacemaker - [facility] CORONAR ARTERIOGR-2 CATH (04/10/14) INSERTION OF ONE VASCULAR STENT (04/10/14) INSRT OF DRUG-ELUTING CORON ARTERY STENTS(S) (04/10/14) LEFT HEART CARDIAC CATH (04/10/14) LT HEART ANGIOCARDIOGRAM (03/03/14) OCCUPATIONAL THERAPY (08/15/14) PERCUTANEOUS TRANSLUMINAL CORONARY ANGIOPLASTY [PTCA] (04/10/14) PHYSICAL THERAPY NEC (08/15/14) PROCEDURE ON SINGLE VESSEL (04/10/14) Family History: States: CAD, Hypertension - Social History Hx Tobacco Use: No Hx Alcohol Use: No Hx Substance Use: No - Immunization History Hx Tetanus Toxoid Vaccination: Yes Hx Influenza Vaccination: No Hx Pneumococcal Vaccination: No Review Of Systems Constitutional: Negative for: Fever, Chills Cardiovascular: Positive for: Chest Pain Respiratory: Negative for: Shortness of Breath Gastrointestinal: Negative for: Nausea, Vomiting Physical Exam - Physical Exam Appears: Non-toxic, No Acute Distress Skin: Warm, Dry Head: Normacephalic Eye(s): bilateral: Normal Inspection Oral Mucosa: Moist Neck: Supple Chest: Symmetrical, No Tenderness Cardiovascular: Rhythm Regular, No Murmur Respiratory: No Rales, No Rhonchi, No Wheezing Gastrointestinal/Abdominal: Soft, No Tenderness, No Distention Extremity: Bilateral: Atraumatic, No Pedal Edema, Normal ROM, Other (vascular skin changes to bilateral lower extremities) Pulses: Left Dorsalis Pedis: Normal, Right Dorsalis Pedis: Normal Neurological/Psych: Oriented x3 Gait: Steady ED Course And Treatment - Laboratory Results Result Diagrams: 08/16/17 00:32 08/16/17 00:32 ECG: Interpreted By Me, Viewed By Me ECG Rhythm: Sinus Tachycardia (111), ST/T Changes (inf lat ischemic changes) O2 Sat by Pulse Oximetry: 97 Pulse Ox Interpretation: Normal - Radiology CXR: Interpreted by Me, Viewed By Me CXR Interpretation: No: Infiltrates, Fracture, Pnemothorax Progress Note: Ordered cardiac work-up including labs, EKG, chest x-ray. Patient given Aspirin 325 mg x1. Disposition Discussed With DrKiki: Robert Pederson Comment: accepted the pt on his service and took over the care at 5 AM Doctor Will See Patient In The: Hospital Counseled Patient/Family Regarding: Studies Performed, Diagnosis - Disposition Disposition: HOSPITALIZED Disposition Time: 05:00 Condition: FAIR Forms: [facility] ([place]) - POA Present On Arrival: Poor Glycemic Control - Clinical Impression Clinical Impression: Chest pain - Scribe Statement The provider has reviewed the documentation as recorded by the Scribe (Tasha Long) Provider Attestation: All medical record entries made by the Scribe were at my direction and personally dictated by me. I have reviewed the chart and agree that the record accurately reflects my personal performance of the history, physical exam, medical decision making, and the department course for this patient. I have also personally directed, reviewed, and agree with the discharge instructions and disposition. Decision To Admit - Pt Status Changed To: Hospital Disposition Of: Inpatient - Admit Certification Admit to Inpatient:: After my assessment, the patient will require hospitalization for at least two midnights. This is because of the severity of symptoms shown, intensity of services needed, and/or the medical risk in this patient being treated as an outpatient. - InPatient: Physician Admission Certification: I certify that this patient requires 2 or more midnights of care for the following reason:: After my assessment, the patient will require hospitalization for at least two midnights. This is because of the severity of symptoms shown, intensity of services needed, and/or the medical risk in this patient being treated as an outpatient. - . Bed Request Type: Telemetry Admitting Physician: Robert Pederson Patient Diagnosis: Chest pain
[2017-08-16] MEDS ORDERED: Aspirin 325 mg EC Tablets PO ONE (00:21)
[2017-08-16 00:43] LABS: BASO # 0.1 K/uL (0.0-0.2); BASO % 0.6 % (0.0-2.0); EOS # 0.4 K/uL (0.0-0.7); EOS % 5.2 % (0.0-4.0); HEMOGLOBIN 12.3 g/dL (11.0-16.0); LYMPH # 1.7 K/uL (1.0-4.3); LYMPH % 20.3 % (20.0-40.0); MEAN CELL VOLUME 84.3 fL (81.0-99.0); MEAN CORPUSCULAR HEMOGLOBIN 29.3 pg (27.0-31.0); MEAN CORPUSCULAR HGB CONC 34.7 g/dL (33.0-37.0); MEAN PLATELET VOLUME 7.2 fL (7.2-11.7); MONO # 0.5 K/uL (0.0-0.8); MONO % 6.5 % (0.0-10.0); NEUT # 5.7 K/uL (1.8-7.0); NEUT % 67.4 % (50.0-75.0); NRBC % 0.2 % (0.0-2.0); RBC 4.19 Mil/uL (3.80-5.20); RED CELL DISTRIBUTION WIDTH 13.8 % (11.5-14.5); WHITE BLOOD COUNT 8.5 K/uL (4.8-10.8)
[2017-08-16 00:54] LABS: ALB/GLOB RATIO 1.1 (1.0-2.1); ALT/SGPT 14 U/L (9-52); AST/SGOT 24 U/L (14-36); BLOOD UREA NITROGEN 23 mg/dL (7-17); CALCIUM 9.2 mg/dl (8.6-10.4); GFR AFRICAN-AMERICAN > 60; GFR NON-AFRICAN AMERICAN 51
[2017-08-16 01:03] LABS: INR 0.8; PROTHROMBIN TIME 9.2 SECONDS (9.7-12.2)
[2017-08-16 01:05] LABS: B-TYPE NATRIURETIC PEPTIDE 322 pg/mL (0-900)
[2017-08-16 01:06] LABS: URINE BACTERIA RARE (<OCC); URINE BILIRUBIN NEGATIVE (NEGATIVE); URINE BLOOD 1+ (NEGATIVE); URINE CLARITY Clear (Clear); URINE COLOR Straw (YELLOW); URINE GLUCOSE (UA) 2+ mg/dL (Normal); URINE LEUKOCYTE ESTERASE NEG Leu/uL (Negative); URINE PROTEIN 3+ mg/dL (NEGATIVE); URINE UROBILINOGEN NORMAL mg/dL (0.2-1.0)
[2017-08-16 05:58] VITALS: RESP 20
[2017-08-16] MEDS: Enoxaparin 40 mg Syringe SC SCH (11:12)
--- NOTE | 2017-08-16 11:25 | RAD ---
PROCEDURE: CHEST RADIOGRAPH, 1 VIEW HISTORY: chest pain COMPARISON: 04/05/2017 FINDINGS: LUNGS: Clear. PLEURA: No pneumothorax or pleural fluid seen. CARDIOVASCULAR: Cardiomegaly. No evidence of acute, significant cardiovascular disease. OSSEOUS STRUCTURES: No significant abnormalities. VISUALIZED UPPER ABDOMEN: Normal. OTHER FINDINGS: None. IMPRESSION: No active disease. No acute/significant interval changes. Concordant results with the preliminary interpretation rendered by the emergency department physician procedure.
--- NOTE | 2017-08-16 13:05 | CARD ---
APPROVED REPORT EKG Measurement Heart [id number] <Conclusion> Sinus tachycardia Minimal voltage criteria for LVH, may be normal variant ST & T wave abnormality, consider inferolateral ischemia Abnormal ECG
[2017-08-16] MEDS: oxyCODONE 5 mg Immediate Release Tab PO PRN ×2 (13:36→22:30)
[2017-08-16] MEDS ORDERED: OXYCODONE HCL 15 MG PO SCH (14:00)
--- NOTE | 2017-08-16 17:19 | CP.PCM.CON ---
History of Present Illness - History of Present Illness History of Present Illness: PT WITH CP X 1 DAY. PT DEVELOPED AN EPISODE OF POSTERIOR NECK DISCOMFORT WHICH RADIATED TO UPPER BACK AND SHORTLY THEREAFTER SHE DEVELOPED A LOWER MID CHEST PRESSURE. LASTED SEVERAL HOURS AND RESOLVED ON OWN. NO PALP, DIZZINESS, SOB, EDEMA, PND, ORTHOPNEA. PT IS CP FREE CURRENTLY. CP IS DESCRIBED PRESSURE, 5/10, NO ASSOC SX. PT WITH HX OF CAD AND PCI. HAD CATH 1 YEAR AGO WITH PATENT STENTS AND 50 D1 LESION. ALSO CO SIGNIFICANT FATIGUE OVER PAST 3 MONTHS. Review of Systems - Constitutional Constitutional: As Per HPI, Fatigue. absent: Anorexia, Chills, Daytime Sleepiness, Excessive Sweating, Fever, Frequent Falls, Headache, Increased Appetite, Lethargy, Malaise, Night Sweats, Snoring, Sleep Apnea, Weight Gain, Weight Loss, Weakness, Other - EENT Eyes: As Per HPI. absent: Blind Spots, Blurred Vision, Change in Vision, Decreased Night Vision, Diplopia, Discharge, Dry Eye, Exophthalmos, Floaters, Irritation, Itchy Eyes, Loss of Peripheral Vision, Pain, Photophobia, Requires Corrective Lenses, Sees Flashes, Spots in Vision, Tunnel Vision, Other Visual Disturbances, Loss of Vision, Other Ears: As Per HPI. absent: Decreased Hearing, Ear Discharge, Ear Pain, Tinnitus , Abnormal Hearing, Disequilibrium, Dizziness, Other Nose/Mouth/Throat: As Per HPI. absent: Epistaxis, Nasal Congestion, Nasal Discharge, Nasal Obstruction, Nasal Trauma, Nose Pain, Post Nasal Drip, Sinus Pain, Sinus Pressure, Bleeding Gums, Change in Voice, Dental Pain, Dry Mouth, Dysphagia, Halitosis, Hoarsness, Lip Swelling, Mouth Lesions, Mouth Pain, Odynophagia, Sore Throat, Throat Swelling, Tongue Swelling, Facial Pain, Neck Pain, Neck Mass, Other - Breasts Breasts: As Per HPI. absent: Change in Shape, Mass, Pain, Nipple Discharge, Nipple Inversion, Skin Changes, Swelling, Other - Cardiovascular Cardiovascular: As Per HPI, Chest Pain. absent: Acrocyanosis, Chest Pain at Rest, Chest Pain with Activity, Claudication, Diaphoresis, Dyspnea, Dyspnea on Exertion, Edema, Irregular Heart Rhythm, Pain Radiating to Arm/Neck/Jaw, Leg Edema, Leg Ulcers, Lightheadedness, Orthopnea, Palpitations, Paroxysmal Nocturnal Dyspnea, Pedal Edema, Radiating Pain, Rapid Heart Rate, Slow Heart Rate, Syncope, Other - Respiratory Respiratory: As Per HPI. absent: Cough, Dyspnea, Hemoptysis, Dyspnea on Exertion, Wheezing, Snoring, Stridor, Pain on Inspiration, Chest Congestion, Excessive Mucous Production, Change in Mucous Color, Pain with Coughing, Other - Gastrointestinal Gastrointestinal: As Per HPI. absent: Abdominal Pain, Belching, Bloating, Change in Bowel Habits, Change in Stool Character, Coffee Ground Emesis, Constipation, Cramping, Diarrhea, Dyspepsia, Dysphagia, Early Satiety, Excessive Flatus, Fecal Incontinence, Heartburn, Hematemesis, Hematochezia, Loose Stools, Melena, Nausea, Odynophagia, Temesmus, Vomiting, Other - Genitourinary Genitourinary: As Per HPI. absent: Change in Urinary Stream, Difficulty Urinating, Dysuria, Flank Pain, Hematuria, Pyuria, Nocturia, Urinary Incontinence, Urinary Frequency, Urinary Hesitance, Urinary Urgency, Voiding Freq/Small Amts, Freq UTI, Hx Renal/Bladder Calculi, Hx /Renal Surgery, Bladder Distension, Other - Reproductive: Female Reproductive:Female: As Per HPI. absent: Amenorrhea, Amenorrhea/ Control, Currently Menstual, Cycle <21 Days, Cycle >35 Days, Cycle Variable, Menses 1-7 Days, Menses >/= 8 Days, Menses Variable, Cycle > 4 Weeks Between, No Menses for 6 Months, Heavy Menses, Light Menses, Normal Menses, Spotting Between Cycles , S/P Hysterectomy, Menopausal, Post Menopausal, Premenarche, Abnormal Vaginal Bleeding, Dysmenorrhea, Dyspareunia, Genital Lesions, Genital Pruritis, Pelvic Pain, Prolapse Symptoms, Sexual Dysfunction, Vaginal Discharge, Vaginal Dryness , Vaginal Odor, Vaginal Pruritis, Other - Menstruation Menstruation: As Per HPI. absent: Amenorrhea, Amenorrhea/ Control, Currently Menstual, Cycle <21 Days, Cycle >35 Days, Cycle Variable, Menses 1-7 Days, Menses >/= 8 Days, Menses Variable, Cycle > 4 Weeks Between, No Menses for 6 Months, Heavy Menses, Light Menses, Normal Menses, Spotting Between Cycles , S/P Hysterectomy, Menopausal, Post Menopausal, Premenarche, Abnormal Vaginal Bleeding, Dysmenorrhea, Other - Musculoskeletal Musculoskeletal: As Per HPI, Back Pain, Neck Pain. absent: Abnormal Gait, Arthralgias, Atrophy, Deformity, Joint Swelling, Limited Range of Motion, Loss of Height, Muscle Cramps, Muscle Weakness, Myalgias, Numbness, Radiating Pain into Limb, Stiffness, Tingling, Other - Integumentary Integumentary: As Per HPI. absent: Acne, Alopecia, Bleeding Lesions, Change in Hair, Change in Nails, Change in Pigmentation, Changing Lesions, Dry Skin, Erythema, Furuncle, Hirsutism, Lesions, New Lesions, Non-Healing Lesions, Photosensitivity, Pruritus, Rash, Skin Pain, Skin Ulcer, Sores, Striae, Swelling , Unusual Bruising, Wounds, Jaundice, Other - Neurological Neurological: As Per HPI. absent: Abnormal Gait, Abnormal Hearing, Abnormal Movements, Abnormal Speech, Behavioral Changes, Burning Sensations, Confusion, Convulsions, Disequilibrium, Dizziness, Numbness, Focal Weakness, Frequent Falls , Headaches, Lack of Coordination, Loss of Vision, Memory Loss, Paresthesias, Radicular Pain, Restless Legs, Sensory Deficit, Syncope, Tingling, Tremor, Vertigo, Weakness, Other Visual Disturbances, Other - Psychiatric Psychiatric: As Per HPI. absent: Abnormal Sleep Pattern, Anhedonia, Anxiety, Auditory Hallucinations, Behavioral Changes, Change in Appetite, Change in Libido, Confusion, Depression, Difficulty Concentrating, Hallucinations, Homicidal Ideation, Hopelessness, Irritability, Memory Loss, Mood Swings, Panic Attacks, Paranoia, Suicidal Ideation, Visual Hallucinations, Tactile Hallucinations, Other - Endocrine Endocrine: As Per HPI. absent: Change in Body Appearance, Change in Libido, Cold Intolorance, Deepening of Voice, Excessive Sweating, Fatigue, Flushing, Heat Intolorance, Increase in Ring/Shoe/Hat Size, Palpitations, Polydipsia, Polyphagia, Polyuria, Other - Hematologic/Lymphatic Hematologic: As Per HPI. absent: Easy Bleeding, Easy Bruising, Lymphadenopathy , Other Past Patient History - Infectious Disease Hx of Infectious Diseases: None - Past Medical History & Family History Past Medical History?: Yes - Past Social History Smoking Status: Never Smoked Chewing Tobacco Use: No Cigar Use: No Alcohol: None Drugs: Denies - CARDIAC Hx Cardiac Disorders: Yes Hx Hypercholesterolemia: Yes Hx Hypertension: Yes Hx Pacemaker: No - PULMONARY Hx Respiratory Disorders: Yes Hx Asthma: Yes - NEUROLOGICAL Hx Neurological Disorder: Yes HX Cerebrovascular Accident: Yes (may 2014; left sided weakness) - HEENT Hx HEENT Problems: Yes Other/Comment: EYES W/ PRESSURE - RENAL Hx Chronic Kidney Disease: No - ENDOCRINE/METABOLIC Hx Endocrine Disorders: Yes Hx Diabetes Mellitus Type 2: Yes - HEMATOLOGICAL/ONCOLOGICAL Hx Blood Disorders: No Hx Human Immunodeficiency Virus (HIV): No - INTEGUMENTARY Hx Dermatological Problems: No - MUSCULOSKELETAL/RHEUMATOLOGICAL Hx Musculoskeletal Disorders: No Hx Falls: No - GASTROINTESTINAL Hx Gastrointestinal Disorders: No - GENITOURINARY/GYNECOLOGICAL Hx Genitourinary Disorders: No - PSYCHIATRIC Hx Psychophysiologic Disorder: Yes Hx Depression: Yes Hx Substance Use: No - SURGICAL HISTORY Hx Surgeries: Yes Hx Appendectomy: Yes (1998) Hx Coronary Stent: Yes (x2 04/10/2014) Other/Comment: Fibroid uterus - ANESTHESIA Hx Anesthesia: Yes Hx Anesthesia Reactions: No Hx Malignant Hyperthermia: No Has any member of the family had a problem w/ anesthesia?: No Meds Allergies/Adverse Reactions: Allergies Allergy/AdvReac Type Severity Reaction Status Date / Time No Known Allergies Allergy Verified 05/21/17 13:50 - Medications Medications: Current Medications Amlodipine Besylate (Norvasc) 10 mg PO DAILY [facility] Last Admin: 08/16/17 11:11 Dose: 10 mg Aspirin (Aspirin Chewable) 81 mg PO DAILY [facility] Clopidogrel Bisulfate (Plavix) 75 mg PO DAILY [facility] Last Admin: 08/16/17 11:11 Dose: 75 mg Enoxaparin Sodium (Lovenox) 40 mg SC DAILY [facility] Last Admin: 08/16/17 11:12 Dose: Not Given Lorazepam (Ativan) 1 mg PO DAILY PRN PRN Reason: Anxiety Metformin HCl (Glucophage) 1,000 mg PO BID[facility] Last Admin: 08/16/17 17:15 Dose: 1,000 mg Oxycodone HCl (Oxycodone Immediate Release Tab) 15 mg PO Q8 PRN PRN Reason: Pain, moderate (4-7) Last Admin: 08/16/17 13:36 Dose: 15 mg Physical Exam - Constitutional Appears: Non-toxic - Head Exam Head Exam: ATRAUMATIC, NORMAL INSPECTION, NORMOCEPHALIC - Eye Exam Eye Exam: EOMI, Normal appearance, PERRL. absent: Conjunctival injection, Nystagmus, Periorbital swelling, Periorbital tenderness, Scleral icterus Pupil Exam: NORMAL ACCOMODATION, PERRL. absent: Fixed, Irregular, Miosis, Mydriatic, Unequal - ENT Exam ENT Exam: Mucous Membranes Moist, Normal Exam. absent: Mucous Membranes Dry, Normal External Ear Exam, Normal Oropharynx, TM's Normal Bilaterally - Neck Exam Neck exam: Positive for: Normal Inspection. Negative for: Full Rom, Lymphadenopathy, Meningismus, Tenderness, Thyromegaly - Respiratory Exam Respiratory Exam: Wheezes, NORMAL BREATHING PATTERN. absent: Accessory Muscle Use, Chest Wall Tenderness, Decreased Breath Sounds, Clear to Auscultation Bilateral, Prolonged Expiratory Phase, Rales, Rhonchi, Respiratory Distress, Stridor - Cardiovascular Exam Cardiovascular Exam: REGULAR RHYTHM, +S1, +S2, Systolic Murmur. absent: Bradycardia, Tachycardia, Clicks, Diastolic murmur, Gallop, Irregular Rhythm, JVD, RRR, Rubs, +S4 - GI/Abdominal Exam GI & Abdominal Exam: Normal Bowel Sounds, Soft. absent: Bruit, Diminished Bowel Sounds, Distended, Firm, Guarding, Hernia, Hyperactive Bowel Sounds, Hypoactive Bowel Sounds, Mass, Organomegaly, Pulsatile Mass, Rebound, Rigid, Tenderness - Rectal Exam Rectal Exam: Deferred - Extremities Exam Extremities exam: Positive for: normal inspection. Negative for: calf tenderness, full ROM, joint swelling, normal capillary refill, pedal edema, tenderness, pedal pulses present - Back Exam Back exam: NORMAL INSPECTION. absent: CVA tenderness (L), CVA tenderness (R), FULL ROM, muscle spasm, paraspinal tenderness, rash noted, tenderness, vertebral tenderness - Neurological Exam Neurological exam: Alert, CN II-XII Intact, Normal Gait, Oriented x3, Reflexes Normal - Psychiatric Exam Psychiatric exam: Normal Affect, Normal Mood - Skin Skin Exam: Dry, Intact, Normal Color, Warm Results - Vital Signs Recent Vital Signs: Last Vital Signs Temp 98.3 F 08/16/17 15:24 Pulse 90 08/16/17 15:24 Resp 20 08/16/17 15:24 BP 151/73 H 08/16/17 15:24 Pulse Ox 96 08/16/17 15:24 - Labs Result Diagrams: 08/16/17 00:32 08/16/17 00:32 Labs: Laboratory Results - last 24 hr 08/16/17 08/16/17 08/16/17 00:32 00:32 00:32 WBC 8.5 RBC 4.19 Hgb 12.3 D Hct 35.3 MCV 84.3 MCH 29.3 MCHC 34.7 RDW 13.8 Plt Count 226 MPV 7.2 Neut % (Auto) 67.4 Lymph % (Auto) 20.3 [place] % (Auto) 6.5 Eos % (Auto) 5.2 H Baso % (Auto) 0.6 Neut # (Auto) 5.7 Lymph # (Auto) 1.7 [place] # (Auto) 0.5 Eos # (Auto) 0.4 Baso # (Auto) 0.1 PT 9.2 L INR 0.8 APTT 32 Sodium 143 Potassium 4.0 Chloride 103 Carbon Dioxide 25 Anion Gap 19 BUN 23 H Creatinine 1.1 Est GFR ( Amer) > 60 Est GFR (Non-Af Amer) 51 POC Glucose (mg/dL) Random Glucose 215 H Calcium 9.2 Total Bilirubin 0.5 AST 24 ALT 14 Alkaline Phosphatase 108 Troponin I < 0.0120 NT-Pro-B Natriuret Pep 322 Total Protein 7.8 Albumin 4.0 Globulin 3.8 Albumin/Globulin Ratio 1.1 Urine Color Urine Clarity Urine pH Ur Specific [place] Urine Protein Urine Glucose (UA) Urine Ketones Urine Blood Urine Nitrate Urine Bilirubin Urine Urobilinogen Ur Leukocyte Esterase Urine WBC (Auto) Urine RBC (Auto) Urine Bacteria 08/16/17 08/16/17 08/16/17 00:40 06:18 11:30 WBC RBC Hgb Hct MCV MCH MCHC RDW Plt Count MPV Neut % (Auto) Lymph % (Auto) [place] % (Auto) Eos % (Auto) Baso % (Auto) Neut # (Auto) Lymph # (Auto) [place] # (Auto) Eos # (Auto) Baso # (Auto) PT INR APTT Sodium Potassium Chloride Carbon Dioxide Anion Gap BUN Creatinine Est GFR ( Amer) Est GFR (Non-Af Amer) POC Glucose (mg/dL) 165 H 158 H Random Glucose Calcium Total Bilirubin AST ALT Alkaline Phosphatase Troponin I NT-Pro-B Natriuret Pep Total Protein Albumin Globulin Albumin/Globulin Ratio Urine Color Straw Urine Clarity Clear Urine pH 6.0 Ur Specific [place] 1.010 Urine Protein 3+ H Urine Glucose (UA) 2+ H Urine Ketones Negative Urine Blood 1+ H Urine Nitrate Negative Urine Bilirubin Negative Urine Urobilinogen Normal Ur Leukocyte Esterase Neg Urine WBC (Auto) 2 Urine RBC (Auto) 5 H Urine Bacteria Rare 08/16/17 08/16/17 13:57 16:42 WBC RBC Hgb Hct MCV MCH MCHC RDW Plt Count MPV Neut % (Auto) Lymph % (Auto) [place] % (Auto) Eos % (Auto) Baso % (Auto) Neut # (Auto) Lymph # (Auto) [place] # (Auto) Eos # (Auto) Baso # (Auto) PT INR APTT Sodium Potassium Chloride Carbon Dioxide Anion Gap BUN Creatinine Est GFR ( Amer) Est GFR (Non-Af Amer) POC Glucose (mg/dL) 162 H Random Glucose Calcium Total Bilirubin AST ALT Alkaline Phosphatase Troponin I < 0.0120 NT-Pro-B Natriuret Pep Total Protein Albumin Globulin Albumin/Globulin Ratio Urine Color Urine Clarity Urine pH Ur Specific [place] Urine Protein Urine Glucose (UA) Urine Ketones Urine Blood Urine Nitrate Urine Bilirubin Urine Urobilinogen Ur Leukocyte Esterase Urine WBC (Auto) Urine RBC (Auto) Urine Bacteria - EKG Data EKG Interpreted by: Myself EKG shows normal: Sinus rhythm, ST-T waves Rate: Tachycardia - EKG Data When Compared to Previous EKG: No Significant Change Assessment & Plan (1) Chest pain Status: Acute (2) Uncontrolled hypertension Status: Acute (3) CAD (coronary artery disease) Status: Chronic Priority: High (4) Diabetes Status: Chronic (5) Abnormal EKG Status: Acute - Assessment and Plan (Free Text) Plan: ASKED TO SEE PT BY DR INFANTE FOR COVERAGE. PT WITH KNOWN HX OF CAD S/P PCI TO PROX LAD AND OM1 IN 2013. CURRENT CP IS ATYPICAL. EKG CHANGES ARE CHRONIC. THERE WAS A DIAG W 50% OSTIAL DZ ON PRIOR CATH. WILL HAVE PT UNDERGO EXERCISE STRESS TESTING IN AM. ECHO IN AM. ADD COREG 3.125 BID GIVEN CAD AND ASTHMA DIAGNOSIS. CT RULED OUT
--- NOTE | 2017-08-17 08:31 | CP.PCM.HP ---
History of Present Illness - History of Present Illness History of Present Illness: CC: Chest pain 62 y/o female with CAD s/p stent, NIDDM and prev admitted for intstinal obstruction. Patient had chest pain x 2. Chest pain was pressure lide that goes to the back and felt weak w/ mild SOB. She went to ER and was admitted. Present on Admission - Present on Admission Any Indicators Present on Admission: Yes History of DVT/PE: No History of Uncontrolled Diabetes: No Urinary Catheter: No Decubitus Ulcer Present: No Review of Systems - Review of Systems Systems not reviewed;Unavailable: Acuity of Condition - Constitutional Constitutional: Weakness. absent: Headache, Increased Appetite, Night Sweats, Sleep Apnea, Weight Loss - EENT Eyes: absent: Change in Vision, Exophthalmos, Pain, Requires Corrective Lenses, Loss of Vision Ears: absent: Ear Discharge, Dizziness Nose/Mouth/Throat: absent: Post Nasal Drip, Sinus Pressure, Bleeding Gums - Cardiovascular Cardiovascular: Chest Pain, Dyspnea. absent: Claudication, Diaphoresis, Edema, Irregular Heart Rhythm, Leg Edema, Leg Ulcers, Orthopnea, Palpitations, Syncope - Respiratory Respiratory: Cough. absent: Hemoptysis, Dyspnea on Exertion, Chest Congestion, Excessive Mucous Production, Change in Mucous Color - Gastrointestinal Gastrointestinal: Abdominal Pain. absent: Diarrhea, Dyspepsia, Loose Stools, Melena, Nausea, Vomiting - Genitourinary Genitourinary: Nocturia. absent: Dysuria, Pyuria, Urinary Incontinence, Urinary Frequency - Musculoskeletal Musculoskeletal: Back Pain. absent: Atrophy, Loss of Height, Muscle Weakness, Myalgias, Neck Pain - Integumentary Integumentary: absent: Dry Skin, Pruritus, Rash, Sores, Unusual Bruising Past Patient History - Infectious Disease Hx of Infectious Diseases: None - Past Medical History & Family History Past Medical History?: Yes - Past Social History Smoking Status: Never Smoked Chewing Tobacco Use: No Cigar Use: No Alcohol: None Drugs: Denies - CARDIAC Hx Cardiac Disorders: Yes Hx Hypercholesterolemia: Yes Hx Hypertension: Yes Hx Pacemaker: No - PULMONARY Hx Respiratory Disorders: Yes Hx Asthma: Yes - NEUROLOGICAL Hx Neurological Disorder: Yes HX Cerebrovascular Accident: Yes (may 2014; left sided weakness) - HEENT Hx HEENT Problems: Yes Other/Comment: EYES W/ PRESSURE - RENAL Hx Chronic Kidney Disease: No - ENDOCRINE/METABOLIC Hx Endocrine Disorders: Yes Hx Diabetes Mellitus Type 2: Yes - HEMATOLOGICAL/ONCOLOGICAL Hx Blood Disorders: No Hx Human Immunodeficiency Virus (HIV): No - INTEGUMENTARY Hx Dermatological Problems: No - MUSCULOSKELETAL/RHEUMATOLOGICAL Hx Musculoskeletal Disorders: No Hx Falls: No - GASTROINTESTINAL Hx Gastrointestinal Disorders: No - GENITOURINARY/GYNECOLOGICAL Hx Genitourinary Disorders: No - PSYCHIATRIC Hx Psychophysiologic Disorder: Yes Hx Depression: Yes Hx Substance Use: No - SURGICAL HISTORY Hx Surgeries: Yes Hx Appendectomy: Yes (1998) Hx Coronary Stent: Yes (x2 04/10/2014) Other/Comment: Fibroid uterus - ANESTHESIA Hx Anesthesia: Yes Hx Anesthesia Reactions: No Hx Malignant Hyperthermia: No Has any member of the family had a problem w/ anesthesia?: No Meds Allergies/Adverse Reactions: Allergies Allergy/AdvReac Type Severity Reaction Status Date / Time No Known Allergies Allergy Verified 05/21/17 13:50 Physical Exam - Constitutional Appears: Well - Eye Exam Eye Exam: Normal appearance. absent: Conjunctival injection, Periorbital tenderness - ENT Exam ENT Exam: Mucous Membranes Moist - Neck Exam Neck exam: Positive for: Full Rom. Negative for: Lymphadenopathy, Thyromegaly - Respiratory Exam Respiratory Exam: Decreased Breath Sounds, Wheezes. absent: Rales, Rhonchi - Cardiovascular Exam Cardiovascular Exam: REGULAR RHYTHM, +S1, +S2. absent: Gallop, JVD, Systolic Murmur - GI/Abdominal Exam GI & Abdominal Exam: Soft. absent: Mass, Tenderness - Extremities Exam Extremities exam: Positive for: full ROM, normal capillary refill. Negative for : calf tenderness, joint swelling, pedal edema, pedal pulses present Results - Vital Signs Recent Vital Signs: Last Vital Signs Temp 97.9 F 08/16/17 23:45 Pulse 83 08/17/17 03:25 Resp 20 08/16/17 23:45 BP 124/67 08/16/17 23:45 Pulse Ox 97 08/16/17 23:45 - Labs Result Diagrams: 08/16/17 00:32 08/16/17 00:32 Labs: Laboratory Results - last 24 hr 08/16/17 08/16/17 08/16/17 11:30 13:57 16:42 POC Glucose (mg/dL) 158 H 162 H Troponin I < 0.0120 08/16/17 08/17/17 21:01 06:14 POC Glucose (mg/dL) 157 H 144 H Troponin I - EKG Data EKG Interpreted by: Myself - EKG Data When Compared to Previous EKG: No Significant Change Assessment & Plan - Assessment and Plan (Free Text) Assessment: Atyp Chest pain; CAD Wheezing; NIDDM For cardio work up discharge if clear c/o Cardio Start Neb and Advair Cont meds
[2017-08-17] MEDS ORDERED: OXYCODONE HCL 15 MG PO SCH (10:00)
[2017-08-17] MEDS: Albuterol-Ipratrop 3 mg / 0.5 (3 ml) UD INH SCH ×2 (11:29→15:33)
--- NOTE | 2017-08-17 12:19 | CP.PCM.PN ---
Subjective - Date & Time of Evaluation Date of Evaluation: 08/17/17 Time of Evaluation: 17:34 - Subjective Subjective: pt without further cp. Had st this morning. Objective - Vital Signs/Intake and Output Vital Signs (last 24 hours): Temp Pulse Resp BP Pulse Ox 98.1 F 95 H 20 158/80 H 97 08/17/17 08:41 08/17/17 08:41 08/17/17 08:41 08/17/17 08:41 08/17/17 08:41 - Medications Medications: Current Medications Albuterol/Ipratropium (Duoneb 3 Mg/0.5 Mg (3 Ml) Ud) 3 ml INH RQID [facility] Last Admin: 08/17/17 11:29 Dose: Not Given Amlodipine Besylate (Norvasc) 10 mg PO DAILY [facility] Last Admin: 08/16/17 11:11 Dose: 10 mg Aspirin (Aspirin Chewable) 81 mg PO DAILY [facility] Carvedilol (Coreg) 3.125 mg PO BID [facility] Last Admin: 08/16/17 22:00 Dose: 3.125 mg Clopidogrel Bisulfate (Plavix) 75 mg PO DAILY [facility] Last Admin: 08/16/17 11:11 Dose: 75 mg Enoxaparin Sodium (Lovenox) 40 mg SC DAILY [facility] Last Admin: 08/16/17 11:12 Dose: Not Given Lorazepam (Ativan) 1 mg PO DAILY PRN PRN Reason: Anxiety Last Admin: 08/16/17 22:30 Dose: 1 mg [facility] Admin: 08/17/17 07:56 Dose: Not Given Oxycodone HCl (Oxycodone Immediate Release Tab) 15 mg PO Q8 PRN PRN Reason: Pain, moderate (4-7) Last Admin: 08/16/17 22:30 Dose: 15 mg Fluticasone/Salmeterol (Advair Diskus 500/50) 1 puff INH RQ12 [facility] - Labs Labs: 08/16/17 00:32 08/16/17 00:32 PT 9.2 SECONDS (9.7-12.2) L 08/16/17 00:32 INR 0.8 08/16/17 00:32 APTT 32 SECONDS (21-34) 08/16/17 00:32 - Constitutional Appears: Well - Head Exam Head Exam: ATRAUMATIC, NORMAL INSPECTION, NORMOCEPHALIC - Eye Exam Eye Exam: EOMI, Normal appearance, PERRL. absent: Conjunctival injection, Nystagmus, Periorbital swelling, Periorbital tenderness, Scleral icterus Pupil Exam: NORMAL ACCOMODATION, PERRL - ENT Exam ENT Exam: Mucous Membranes Moist, Normal Exam. absent: Mucous Membranes Dry, Normal External Ear Exam, Normal Oropharynx, TM's Normal Bilaterally - Neck Exam Neck Exam: Full ROM, Normal Inspection. absent: Lymphadenopathy, Meningismus, Tenderness, Thyromegaly - Respiratory Exam Respiratory Exam: Clear to Ausculation Bilateral, NORMAL BREATHING PATTERN. absent: Accessory Muscle Use, Chest Wall Tenderness, Decreased Breath Sounds, Prolonged Expiratory Phase, Rales, Rhonchi, Wheezes, Respiratory Distress, Stridor - Cardiovascular Exam Cardiovascular Exam: REGULAR RHYTHM, +S1, +S2, Murmur. absent: Bradycardia, Tachycardia, Clicks, Diastolic murmur, Gallop, Irregular Rhythm, JVD, RRR, Rubs , +S4 - GI/Abdominal Exam GI & Abdominal Exam: Soft, Normal Bowel Sounds. absent: Bruit, Distended, Firm , Guarding, Rigid, Tenderness, Diminished Bowel Sounds, Hernia, Hyperactive Bowel Sounds, Hypoactive Bowel Sounds, Organomegaly, Pulsatile Mass, Rebound, Mass - Rectal Exam Rectal Exam: Deferred - Extremities Exam Extremities Exam: Full ROM, Normal Capillary Refill, Normal Inspection. absent : Calf Tenderness, Joint Swelling, Pedal Edema, Tenderness - Back Exam Back Exam: NORMAL INSPECTION. absent: CVA tenderness (L), CVA tenderness (R), Full ROM, muscle spasm, paraspinal tenderness, rash noted, tenderness, vertebral tenderness - Neurological Exam Neurological Exam: Alert, Awake, CN II-XII Intact, Normal Gait, Oriented x3. absent: Abnormal Gait, Altered, Motor Sensory Deficit, Reflexes Normal - Psychiatric Exam Psychiatric exam: Normal Affect, Normal Mood. absent: Agitated, Anxious, Depressed, Flat Affect, Homicidal Ideation, Manic, Suicidal Ideation - Skin Skin Exam: Dry, Intact, Normal Color, Warm. absent: Abrasion, Cyanosis, Diaphoretic, Erythema, Mottled, Pallor, Pallor, Petechiae, Rash, Urticaria, Vesicles Assessment and Plan (1) Chest pain Status: Acute (2) Uncontrolled hypertension Status: Acute (3) CAD (coronary artery disease) Status: Chronic (4) Diabetes Status: Chronic (5) Abnormal EKG Status: Acute - Assessment and Plan (Free Text) Plan: lexiscan nuclear st is negative for ischemia. patient may be dc to home. f/u with dr osorio in 2 weeks.
[2017-08-17] MEDS: Enoxaparin 40 mg Syringe SC SCH (14:23)
[2017-08-17] MEDS: oxyCODONE 5 mg Immediate Release Tab PO PRN (14:24)
[2017-08-17 16:57] VITALS: BP 112/64; PULSE 79; TEMP 98.2; O2SAT 95
--- NOTE | 2017-08-17 17:20 | CARD ---
APPROVED REPORT Protocol: LEXISCAN Test Type: LEXISCAN STRESS Test Indications: HTN CP Target HR: 160 bpm Resting ECG: T wave inversion Resting Heart Rate: 96 bpm Resting Blood Pressure: 140/80mmHg submaximum (85%): 136 bpm TEST SUMMARY [id number]:02..1.096/.0. PREINFSNHYPERV.02:[id number]/80.0. INFUSIONDOSE 100:300.00.01.0102/.0. IHGMDNFFQ80:[id number]/80.0. PROCEDURE Pharmacologic stress testing was performed using 0.4mg per 5ml of regadenoson given intravenously over 7-10 seconds. POST EXERCISE Reason for Termination: Protocol Completed Target HR: No Max HR: 102 bpm 68% of Maximum Predicted HR: 160 bpm Exercise duration: 00:30 min:sec, 0 Stage Exercise capacity: 1.0METs Max Blood Pressure: 150/80mmHg Blood Pressure response to exercise: normal resting BP - blunted response Heart Rate response to exercise: appropriate Chest Pain: No, none Angina index: 0 Arrhythmia: No, none ST Change: No, none from baseline Deviation: 0 mm INTERPRETATION Stress EKG Conclusion: EQUIVOCAL, ASYMPTOMATIC LEXISCAN EKG STRESS. BASELINE ST SEG DEPRESSION AND T WAVE INVERSIONS WHICH DID NOT CHANGE DURING STRESS. NO ARRYTHMIAS. RESTING ECG Rhythm: Sinus Conduction: Normal Arrhythmias: None Repolarization: nonspecific ST-T changes STRESS ECG Rhythm: Sinus Conduction: Normal Arrhythmias: None Repolarization: nonspecific ST-T changes ST-Segment changes: Nondiagnostic resting ST abnormalities. ST-Sement Location: Lateral. EXAM: Myocardial Perfusion REST/STRESS Imaging Protocol The imaging protocol used to acquire images was Rest Tc-99m/stress Tc-99m 1 day Rest Spect myocardial perfusion imaging was performed in supine position 45 minutes following the injection of 12.9 mCi of Tc-99 Myoview. Gated Stress Spect was performed 45 minutes after intravenous 32.4 mCi Tc-99 Myoview injection. The images were gated to evaluate regional wall motion and calculate ventricular ejection fraction.Images were reconstructed using backfilter projection method in short horizontal and verticle long axis. Spect slices were generated. RESTING DATA EDV84.62rsEL0.10L/min ESV27.00mlMyocardial Czzl911.00g Av. Heart Rate88.00bpm EF68.00% STRESS DATA EDV97.21shAE2.10L/min ESV26.00mlMyocardial Ordp803.00g EF73.00% Regional WT score at stress:1.00 Regional WM score at stress:0.00 Summed WT score at stress:12.00 Av. Heart Rate87.00bpmSummed WM score at stress:0.00 Study quality was excellent. Left Ventricular size was Normal at Rest and Stress. The rest and stress images show normal perfusion, normal contraction and thickening. LV Perf. Quant 17 Seg. SSS0.00 17 Seg. SRS0.00 17 Seg. SDS0.00 Stress Defect Extent (% LAD)0.00Rest Defect Extent (% LAD)0.00Rev. Defect Extent (% LAD)0.00 Stress Defect Extent (% LCX)0.00Rest Defect Extent (% LCX)0.00Rev. Defect Extent (% LCX)0.00 Stress Defect Extent (% RCA)0.00Rest Defect Extent (% RCA)0.00Rev. Defect Extent (% RCA)0.00 Stress Defect Extent (% SURY)0.00Rest Defect Extent (% SURY)0.00Rev. Defect Extent (% SURY)0.00 Other Information Quality:Excellent IMPRESSION Normal Myocardial Perfusion exercise stress study Left Ventricle LV Size/Shape: The left ventricle is normal size. LV Thickness: There is normal left ventricular wall thickness. LV Function:Left ventricle systolic function is normal. The Ejection Fraction is >70%. Regional Wall Motion:There is normal left ventricular wall motion. Conclusion 1. The stress and resting images show normal perfusion. 2. There are EKG changes not suggestive of ischemia.
--- NOTE | 2017-08-17 17:30 | CP.PCM.PN ---
Subjective - Date & Time of Evaluation Date of Evaluation: 08/17/17 Time of Evaluation: 17:20 - Subjective Subjective: Patient seen today , chest pain resolved, denies any sob, palpitations, headache N/V/ s/p lexiscan nuclear stress test and is negative for ischemia. Objective - Vital Signs/Intake and Output Vital Signs (last 24 hours): Temp Pulse Resp BP Pulse Ox 98.2 F 79 20 112/64 95 08/17/17 16:55 08/17/17 16:55 08/17/17 16:55 08/17/17 16:55 08/17/17 16:55 Intake and Output: 08/17/17 08/17/17 06:59 18:59 Intake Total 200 Balance 200 - Medications Medications: Current Medications Albuterol/Ipratropium (Duoneb 3 Mg/0.5 Mg (3 Ml) Ud) 3 ml INH RQID [facility] Last Admin: 08/17/17 15:33 Dose: 3 ml Amlodipine Besylate (Norvasc) 10 mg PO DAILY [facility] Last Admin: 08/17/17 14:23 Dose: 10 mg Aspirin (Aspirin Chewable) 81 mg PO DAILY [facility] Last Admin: 08/17/17 14:23 Dose: 81 mg Carvedilol (Coreg) 3.125 mg PO BID [facility] Last Admin: 08/17/17 14:22 Dose: 3.125 mg Clopidogrel Bisulfate (Plavix) 75 mg PO DAILY [facility] Last Admin: 08/17/17 14:23 Dose: 75 mg Enoxaparin Sodium (Lovenox) 40 mg SC DAILY [facility] Last Admin: 08/17/17 14:23 Dose: Not Given Lorazepam (Ativan) 1 mg PO DAILY PRN PRN Reason: Anxiety Last Admin: 08/16/17 22:30 Dose: 1 mg [facility] Admin: 08/17/17 07:56 Dose: Not Given Oxycodone HCl (Oxycodone Immediate Release Tab) 15 mg PO Q8 PRN PRN Reason: Pain, moderate (4-7) Last Admin: 08/17/17 14:24 Dose: 15 mg Fluticasone/Salmeterol (Advair Diskus 500/50) 1 puff INH RQ12 [facility] - Labs Labs: 08/16/17 00:32 08/16/17 00:32 PT 9.2 SECONDS (9.7-12.2) L 08/16/17 00:32 INR 0.8 08/16/17 00:32 APTT 32 SECONDS (21-34) 08/16/17 00:32 Assessment and Plan - Assessment and Plan (Free Text) Assessment: A/P 62 yr old female with pmhx of CAD, Depression, Diabetes, HTN, Hypercholesterolemia admitted with chest pain troponin - negative s/p lexiscan nuclear stress test and is negative for ischemia. D/W Dr. Nation, stress test negative and patient can be discharged home today and f/u with Dr. osorio office in 2 weeks D/W Dr. Nichole, stable for discharge home today and f/u with Dr. Nichole office in 1 week Discharge plan discussed with patient who understands and agrees with plan
--- NOTE | 2017-08-17 17:52 | CARD ---
APPROVED REPORT EXAM: Two-dimensional and M-mode echocardiogram with Doppler and color Doppler. INDICATION CVA/TIA Cardiac Disease: CAD Chest Pain RISK FACTORS Hypertension 2D DIMENSIONS IVSd1.7 (0.7-1.1cm)LVDd3.8 (3.9-5.9cm) PWd1.5 (0.7-1.1cm)LVDs2.4 (2.5-4.0cm) FS (%) 37.0 %LVEF (%)67.7 (>50%) M-Mode DIMENSIONS Left Atrium (MM)3.80 (2.5-4.0cm)Aortic Root3.78 (2.2-3.7cm) Aortic Cusp Exc.2.14 (1.5-2.0cm) Mitral Valve MV E Egkxafqd678.3cm/sMV A Hmcnnegh285.3cm/sE/A ratio1.0 TDI E/Lateral E'0.0E/Medial E'0.0 Tricuspid Valve TR Peak Eblhldff582jw/sTR Peak Gr.9mmHg LEFT VENTRICLE The left ventricle is normal size. There is mild concentric left ventricular hypertrophy. The left ventricular function is normal. The left ventricular ejection fraction is within the normal range. There is normal LV segmental wall motion. Transmitral Doppler flow pattern is Grade I-abnormal relaxation pattern. RIGHT VENTRICLE The right ventricle is normal size. There is normal right ventricular wall thickness. The right ventricular systolic function is normal. ATRIA The left atrium size is normal. The right atrium size is normal. AORTIC VALVE The aortic valve is not well visualized. There is no aortic valvular stenosis. MITRAL VALVE The mitral valve is moderately thickened. There is no mitral valve stenosis. There is no mitral valve regurgitation noted. TRICUSPID VALVE The tricuspid valve is normal in structure. There is trace tricuspid regurgitation. GREAT VESSELS The aortic root is normal in size. The IVC was not visualized. PERICARDIAL EFFUSION There is a trace loculated anterior pericardial effusion. <Conclusion> The left ventricle is normal size. There is mild concentric left ventricular hypertrophy. The left ventricular function is normal. The left ventricular ejection fraction is within the normal range. There is normal LV segmental wall motion. Transmitral Doppler flow pattern is Grade I-abnormal relaxation pattern. The mitral valve is moderately thickened.
[2017-08-17] MEDS ORDERED: Fluticasone-Salmeterol 500-50mcg Diskus INH SCH (20:00)
== END 2017-08-17 18:40 | disposition home or self-care (01) | DRG 313 ==
LOC: C.ER 00:05 → C.6T 04:59
PROVIDERS: ADMIT Internal Medicine; ATTEND Internal Medicine
DX: R07.89 Other chest pain (principal); E78.00 Pure hypercholesterolemia, unspecified; I10 Essential (primary) hypertension; I25.10 Atherosclerotic heart disease of native coronary artery without angina pectoris; E11.9 Type 2 diabetes mellitus without complications; J45.909 Unspecified asthma, uncomplicated; Z79.84 Long term (current) use of oral hypoglycemic drugs; Z86.73 Personal history of transient ischemic attack (TIA), and cerebral infarction without residual deficits; Z95.5 Presence of coronary angioplasty implant and graft; Z90.49 Acquired absence of other specified parts of digestive tract